=== PATIENT | female | born 1960 | race African-American/Black ===

== ENCOUNTER 2019-08-04 00:07 | Inpatient (IN) | payer OTHER, MEDICAID ==
[2019-08-04] VITALS (15 sets, daily range): BP systolic 142–165; BP diastolic 75–99
[~2019-08-04] VITALS: Ht 167.6 cm; Wt 103.4 kg
[2019-08-04] MEDS ORDERED: ONDANSETRON HCL 4MG/2ML INJ IV STA (00:28)
[2019-08-04] MEDS ORDERED: SODIUM CHLORIDE 0.9% 1,000 ML IV ONE (00:28)
[2019-08-04 01:03] LABS: BASOPHILS % 0.3 % (0.0-2.0); EOSINOPHILS % 0.1 % (0.0-5.0); HEMATOCRIT. 46.4 % (36.0-48.0); HEMOGLOBIN. 15.3 g/dL (12.0-16.0); MEAN CORPUSCULAR VOLUME 90.8 fL (81.0-99.0); MEAN PLATELET VOLUME 9.8 fl (7.4-10.4); MONOCYTES % 7.3 % (2.0-8.0); NEUTROPHILS % 84.3 % (40.0-76.0); PLATELET 222 x1000/uL (130-400); RED BLOOD CELL COUNT 5.11 mill/uL (4.2-5.4); RED CELL DISTRIBUTION WIDTH 14.8 % (11.6-14.6)
[2019-08-04 01:08] LABS: INR 1.1; PROTHROMBIN TIME 11.6 sec (9.6-11.0)
[2019-08-04 01:09] LABS: CHLORIDE 104 mEq/L (98-107)
[2019-08-04 01:13] LABS: ETHANOL BLOOD < 10 mg/dL
[2019-08-04] MEDS ORDERED: DEXAMETHASONE 10 MG/ML VIAL IV ONE (02:30)
[2019-08-04 02:48] LABS: CLARITY URINE CLEAR (CLEAR); COLOR URINE YELLOW (YELLOW); KETONES URINE 3+ (NEGATIVE); LEUKOCYTE ESTERASE URINE NEGATIVE (NEGATIVE); NITRITE URINE NEGATIVE (NEGATIVE); OCCULT BLOOD URINE TRACE (NEGATIVE); PROTEIN URINE 3+ (NEGATIVE); SPECIFIC GRAVITY URINE 1.047 (1.005-1.030)
[2019-08-04 03:10] LABS: *AMPHETAMINES SCREEN URINE NEGATIVE (NEGATIVE); *BARBITURATES SCREEN URINE NEGATIVE (NEGATIVE); *BENZODIAZEPINES SCREEN URINE NEGATIVE (NEGATIVE); *COCAINE SCREEN URINE NEGATIVE (NEGATIVE); OPIATES URINE SCREEN NEGATIVE (NEGATIVE)
[2019-08-04 03:11] LABS: CANNABINOID URINE SCREEN NEGATIVE (NEGATIVE); METHADONE URINE SCREEN NEGATIVE (NEGATIVE); PHENCYCLIDINE URINE SCREEN NEGATIVE (NEGATIVE)
[2019-08-04] MEDS ORDERED: HYDRALAZINE 20MG/ML VIAL IV SCH (03:29)
[2019-08-04] MEDS ORDERED: INSULIN LISPRO 100 UNITS/ML SUBCUT SCH (03:30)
[2019-08-04] MEDS ORDERED: INSULIN LISPRO 100 UNITS/ML SUBCUT ONE (03:30)
[2019-08-04] MEDS ORDERED: HYDRALAZINE 20MG/ML VIAL ONE (03:31)
[2019-08-04] MEDS: INSULIN LISPRO 100 UNITS/ML SUBCUT SCH ×3 (06:21→18:34)
[2019-08-04] MEDS: BLOOD SUGAR DIAGNOSTIC STRIP TEST SCH ×3 (06:22→18:07)
[2019-08-04] MEDS ORDERED: SODIUM CHL 0.9% + KCL 20MEQ/L 1,000 ML IV SCH (07:00)
[2019-08-04] MEDS: HYDRALAZINE 20MG/ML VIAL IV PRN (08:37)
[2019-08-04] MEDS ORDERED: ASPIRIN 325MG TABLET PO SCH (09:00)
[2019-08-04 12:45] LABS: CHLORIDE 109 mEq/L (98-107)
[2019-08-04 12:52] LABS: LDL CHOLESTEROL 130 mg/dL (5-100)
[2019-08-04 12:54] LABS: HDL CHOLESTEROL 67 mg/dL (40-59)
[2019-08-04] MEDS: SODIUM CHLORIDE 0.45% 1,000 ML IV SCH (14:30)
[2019-08-04] MEDS ORDERED: FUROSEMIDE 40MG/4ML VIAL IVP SCH (14:30)
[2019-08-04 15:56] LABS: HEMOGLOBIN. 15.4 g/dL (12.0-16.0); MEAN CORPUSCULAR HEMOGLOBIN 29.8 pg (28.0-32.0); MEAN PLATELET VOLUME 10.5 fl (7.4-10.4); PLATELET 199 x1000/uL (130-400); RED BLOOD CELL COUNT 5.17 mill/uL (4.2-5.4); RED CELL DISTRIBUTION WIDTH 15.1 % (11.6-14.6)
[2019-08-04 16:47] LABS: PLATELET ESTIMATE NORMAL
[2019-08-04] MEDS: ATORVASTATIN CALCIUM 40MG TABLET PO SCH (22:30)
[2019-08-05] VITALS (13 sets, daily range): BP systolic 142–199; BP diastolic 65–104
[2019-08-05] MEDS: INSULIN LISPRO 100 UNITS/ML SUBCUT SCH ×4 (00:27→18:00)
[2019-08-05] MEDS: BLOOD SUGAR DIAGNOSTIC STRIP TEST SCH ×4 (00:31→17:10)
[2019-08-05] MEDS: HYDRALAZINE 20MG/ML VIAL IV PRN ×2 (08:06→17:11)
[2019-08-05] MEDS: SODIUM CHLORIDE 0.45% 1,000 ML IV SCH (08:30)
[2019-08-05] MEDS ORDERED: FLUCONAZOLE 150MG TABLET PO NR (12:30)
[2019-08-05 12:36] LABS: BASOPHILS % 0.4 % (0.0-2.0); EOSINOPHILS % 0.1 % (0.0-5.0); HEMATOCRIT. 44.1 % (36.0-48.0); HEMOGLOBIN. 14.8 g/dL (12.0-16.0); LYMPHOCYTES % 8.3 % (20.0-50.0); MEAN CORPUSCULAR HEMOGLOBIN 30.1 pg (28.0-32.0); MEAN CORPUSCULAR VOLUME 89.7 fL (81.0-99.0); MEAN PLATELET VOLUME 10.3 fl (7.4-10.4); MONOCYTES % 8.7 % (2.0-8.0); NEUTROPHILS % 82.5 % (40.0-76.0); PLATELET 218 x1000/uL (130-400); RED BLOOD CELL COUNT 4.91 mill/uL (4.2-5.4); RED CELL DISTRIBUTION WIDTH 15.1 % (11.6-14.6)
[2019-08-05 12:43] LABS: CHLORIDE 108 mEq/L (98-107)
[2019-08-05] MEDS ORDERED: AMLODIPINE 5MG TABLET PO NR (13:30)
[2019-08-05] MEDS ORDERED: POTASSIUM CHLORIDE INJ 40 MEQ in DEXT 5% WATER 250 ML IV SCH (15:00)
[2019-08-05] MEDS: LOSARTAN POTASSIUM 100 MG TABLET PO SCH (15:05)
[2019-08-05] MEDS: CEFTRIAXONE 1,000 MG in DEXTROSE 5% WATER 50 ML IV SCH (16:00)
[2019-08-05] MEDS: ATORVASTATIN CALCIUM 40MG TABLET PO SCH (22:32)
[2019-08-05] MEDS: AMLODIPINE 5MG TABLET PO SCH (22:33)
[2019-08-06] VITALS (12 sets, daily range): BP systolic 128–195; BP diastolic 78–110
[2019-08-06] MEDS: BLOOD SUGAR DIAGNOSTIC STRIP TEST SCH ×4 (00:15→18:26)
[2019-08-06] MEDS: INSULIN GLARGINE UD 100 UNITS/ML SYR SUBCUT SCH ×3 (00:24→21:29)
[2019-08-06] MEDS: INSULIN LISPRO 100 UNITS/ML SUBCUT SCH ×5 (00:25→23:59)
[2019-08-06] MEDS: HYDRALAZINE 20MG/ML VIAL IV PRN ×2 (00:26→09:38)
[2019-08-06] MEDS: METOPROLOL TARTRATE 50MG TABLET PO SCH ×4 (01:46→21:29)
[2019-08-06 06:22] LABS: HEMATOCRIT. 45.8 % (36.0-48.0); HEMOGLOBIN. 15.3 g/dL (12.0-16.0); MEAN CORPUSCULAR HEMOGLOBIN 30.3 pg (28.0-32.0); MEAN CORPUSCULAR VOLUME 90.7 fL (81.0-99.0); MEAN PLATELET VOLUME 10.6 fl (7.4-10.4); PLATELET 223 x1000/uL (130-400); RED BLOOD CELL COUNT 5.05 mill/uL (4.2-5.4); RED CELL DISTRIBUTION WIDTH 15.1 % (11.6-14.6)
[2019-08-06 06:37] LABS: CHLORIDE 109 mEq/L (98-107)
[2019-08-06] MEDS: SODIUM CHLORIDE 0.45% 1,000 ML IV SCH (06:41)
[2019-08-06] MEDS: LOSARTAN POTASSIUM 100 MG TABLET PO SCH (09:30)
[2019-08-06] MEDS: AMLODIPINE 5MG TABLET PO SCH (09:34)
[2019-08-06] MEDS ORDERED: POTASSIUM CHLORIDE 20MEQ TABLET SR PO NR (12:00)
[2019-08-06 12:05] LABS: NUCLEATED RED BLOOD CELLS 1 /100 WBC; PLATELET ESTIMATE NORMAL
[2019-08-06] MEDS: DILTIAZEM HCL 60MG TABLET PO SCH ×3 (13:24→23:28)
[2019-08-06] MEDS: CEFTRIAXONE 1,000 MG in DEXTROSE 5% WATER 50 ML IV SCH (17:19)
[2019-08-06] MEDS: ATORVASTATIN CALCIUM 40MG TABLET PO SCH ×2 (21:00→21:29)
[2019-08-06] MEDS: METOPROLOL TARTRATE 5MG/5ML VIAL IV SCH (22:36)
[2019-08-07] VITALS (12 sets, daily range): BP systolic 118–185; BP diastolic 74–121
[2019-08-07] MEDS: METOPROLOL TARTRATE 5MG/5ML VIAL IV SCH (05:11)
[2019-08-07] MEDS: INSULIN LISPRO 100 UNITS/ML SUBCUT SCH ×4 (05:30→23:23)
[2019-08-07] MEDS: DILTIAZEM HCL 60MG TABLET PO SCH ×4 (05:36→23:19)
[2019-08-07] MEDS: BLOOD SUGAR DIAGNOSTIC STRIP TEST SCH ×5 (05:36→23:19)
[2019-08-07 06:31] LABS: CHLORIDE 114 mEq/L (98-107)
[2019-08-07] MEDS: HYDRALAZINE 20MG/ML VIAL IV PRN ×2 (06:36→15:49)
[2019-08-07 06:56] LABS: BASOPHILS % 0.5 % (0.0-2.0); EOSINOPHILS % 0.2 % (0.0-5.0); HEMOGLOBIN. 15.9 g/dL (12.0-16.0); LYMPHOCYTES % 7.6 % (20.0-50.0); MEAN CORPUSCULAR HEMOGLOBIN 30.2 pg (28.0-32.0); MEAN CORPUSCULAR VOLUME 89.6 fL (81.0-99.0); MEAN PLATELET VOLUME 10.7 fl (7.4-10.4); MONOCYTES % 10.3 % (2.0-8.0); NEUTROPHILS % 81.4 % (40.0-76.0); PLATELET 241 x1000/uL (130-400); RED BLOOD CELL COUNT 5.25 mill/uL (4.2-5.4); RED CELL DISTRIBUTION WIDTH 15.4 % (11.6-14.6)
[2019-08-07] MEDS: METOPROLOL TARTRATE 50MG TABLET PO SCH ×3 (08:20→20:16)
[2019-08-07] MEDS: LOSARTAN POTASSIUM 100 MG TABLET PO SCH ×2 (08:20→09:14)
[2019-08-07] MEDS: INSULIN GLARGINE UD 100 UNITS/ML SYR SUBCUT SCH ×2 (09:26→22:35)
[2019-08-07] MEDS ORDERED: POTASSIUM CHLORIDE INJ 40 MEQ in DEXT 5% WATER 250 ML IV NR (14:00)
[2019-08-07] MEDS: CEFTRIAXONE 1,000 MG in DEXTROSE 5% WATER 50 ML IV SCH (15:49)
[2019-08-07] MEDS ORDERED: AMIODARONE HCL 150 MG in DEXT 5% WATER 100 ML IV ONE (19:00)
[2019-08-07] MEDS: ATORVASTATIN CALCIUM 40MG TABLET PO SCH (20:16)
[2019-08-07] MEDS: AMIODARONE HCL 900 MG in DEXT 5% WATER 482 ML IV PRN (20:46)
[2019-08-08] VITALS (12 sets, daily range): BP systolic 130–165; BP diastolic 51–119
[2019-08-08] MEDS: DILTIAZEM HCL 60MG TABLET PO SCH ×4 (05:13→23:13)
[2019-08-08] MEDS: BLOOD SUGAR DIAGNOSTIC STRIP TEST SCH ×4 (05:13→23:03)
[2019-08-08] MEDS: INSULIN LISPRO 100 UNITS/ML SUBCUT SCH ×6 (05:27→23:08)
[2019-08-08 06:30] LABS: HEMATOCRIT. 48.1 % (36.0-48.0); HEMOGLOBIN. 16.1 g/dL (12.0-16.0); MEAN CORPUSCULAR HEMOGLOBIN 30.4 pg (28.0-32.0); MEAN CORPUSCULAR VOLUME 90.5 fL (81.0-99.0); MEAN PLATELET VOLUME 10.7 fl (7.4-10.4); PLATELET 222 x1000/uL (130-400); RED BLOOD CELL COUNT 5.31 mill/uL (4.2-5.4); RED CELL DISTRIBUTION WIDTH 15.2 % (11.6-14.6)
[2019-08-08 06:34] LABS: CHLORIDE 112 mEq/L (98-107)
[2019-08-08] MEDS: METOPROLOL TARTRATE 50MG TABLET PO SCH ×2 (08:18→21:48)
[2019-08-08] MEDS: LOSARTAN POTASSIUM 100 MG TABLET PO SCH (08:18)
[2019-08-08] MEDS: INSULIN GLARGINE UD 100 UNITS/ML SYR SUBCUT SCH ×2 (10:24→23:02)
[2019-08-08] MEDS ORDERED: DILTIAZEM HCL 30MG TABLET PO NR (12:15)
[2019-08-08] MEDS: HYDRALAZINE 20MG/ML VIAL IV PRN (14:32)
[2019-08-08] MEDS: CEFTRIAXONE 1,000 MG in DEXTROSE 5% WATER 50 ML IV SCH (16:24)
[2019-08-08] MEDS ORDERED: DILTIAZEM HCL 90MG TABLET PO SCH (18:00)
[2019-08-08] MEDS: ASPIRIN 81MG TABLET PO SCH (18:32)
[2019-08-08 20:19] LABS: PLATELET ESTIMATE NORMAL
[2019-08-08] MEDS: ATORVASTATIN CALCIUM 40MG TABLET PO SCH (21:47)
[2019-08-09] VITALS (12 sets, daily range): BP systolic 110–153; BP diastolic 59–121
[2019-08-09] MEDS: HYDRALAZINE 20MG/ML VIAL IV PRN ×2 (04:19→18:27)
[2019-08-09] MEDS: BLOOD SUGAR DIAGNOSTIC STRIP TEST SCH ×4 (05:21→23:46)
[2019-08-09] MEDS: DILTIAZEM HCL 60MG TABLET PO SCH ×4 (05:21→23:43)
[2019-08-09] MEDS: INSULIN LISPRO 100 UNITS/ML SUBCUT SCH ×7 (05:40→23:45)
[2019-08-09 06:34] LABS: HEMATOCRIT. 46.2 % (36.0-48.0); HEMOGLOBIN. 15.2 g/dL (12.0-16.0); MEAN CORPUSCULAR HEMOGLOBIN 29.9 pg (28.0-32.0); MEAN CORPUSCULAR VOLUME 90.6 fL (81.0-99.0); MEAN PLATELET VOLUME 10.9 fl (7.4-10.4); PLATELET 235 x1000/uL (130-400); RED CELL DISTRIBUTION WIDTH 14.9 % (11.6-14.6)
[2019-08-09 06:40] LABS: CHLORIDE 113 mEq/L (98-107)
[2019-08-09 07:32] LABS: PLATELET ESTIMATE NORMAL
[2019-08-09] MEDS: ASPIRIN 81MG TABLET PO SCH (08:43)
[2019-08-09] MEDS: LOSARTAN POTASSIUM 100 MG TABLET PO SCH (08:43)
[2019-08-09] MEDS: METOPROLOL TARTRATE 50MG TABLET PO SCH (08:45)
[2019-08-09] MEDS: INSULIN GLARGINE UD 100 UNITS/ML SYR SUBCUT SCH ×2 (13:08→23:45)
[2019-08-09] MEDS: ATORVASTATIN CALCIUM 40MG TABLET PO SCH (21:30)
[2019-08-09] MEDS: METOPROLOL TARTRATE 100MG TABLET PO SCH (21:59)
[2019-08-10] VITALS (12 sets, daily range): BP systolic 120–168; BP diastolic 53–99
[2019-08-10] MEDS: AMIODARONE HCL 900 MG in DEXT 5% WATER 482 ML IV PRN (02:31)
[2019-08-10] MEDS: DILTIAZEM HCL 60MG TABLET PO SCH ×3 (05:31→17:26)
[2019-08-10] MEDS: BLOOD SUGAR DIAGNOSTIC STRIP TEST SCH ×3 (05:31→17:31)
[2019-08-10] MEDS: INSULIN LISPRO 100 UNITS/ML SUBCUT SCH ×6 (05:46→17:28)
[2019-08-10 07:04] LABS: BASOPHILS % 0.4 % (0.0-2.0); EOSINOPHILS % 1.8 % (0.0-5.0); HEMATOCRIT. 44.1 % (36.0-48.0); HEMOGLOBIN. 14.5 g/dL (12.0-16.0); LYMPHOCYTES % 7.5 % (20.0-50.0); MEAN CORPUSCULAR HEMOGLOBIN 29.9 pg (28.0-32.0); MEAN CORPUSCULAR VOLUME 91.2 fL (81.0-99.0); MEAN PLATELET VOLUME 10.7 fl (7.4-10.4); MONOCYTES % 9.7 % (2.0-8.0); NEUTROPHILS % 80.6 % (40.0-76.0); PLATELET 231 x1000/uL (130-400); RED BLOOD CELL COUNT 4.84 mill/uL (4.2-5.4); RED CELL DISTRIBUTION WIDTH 14.9 % (11.6-14.6)
[2019-08-10 07:22] LABS: CHLORIDE 113 mEq/L (98-107)
[2019-08-10] MEDS: ASPIRIN 81MG TABLET PO SCH (08:34)
[2019-08-10] MEDS: LOSARTAN POTASSIUM 100 MG TABLET PO SCH (08:34)
[2019-08-10] MEDS: METOPROLOL TARTRATE 100MG TABLET PO SCH ×2 (08:34→21:36)
[2019-08-10] MEDS ORDERED: METOPROLOL TARTRATE 100MG TABLET PO SCH (09:00)
[2019-08-10] MEDS: INSULIN GLARGINE UD 100 UNITS/ML SYR SUBCUT SCH (09:27)
[2019-08-10] MEDS: ATORVASTATIN CALCIUM 40MG TABLET PO SCH (21:36)
[2019-08-11] VITALS (12 sets, daily range): BP systolic 115–157; BP diastolic 64–95
[2019-08-11] MEDS: INSULIN GLARGINE UD 100 UNITS/ML SYR SUBCUT SCH ×3 (00:16→22:00)
[2019-08-11] MEDS: DILTIAZEM HCL 60MG TABLET PO SCH ×4 (00:17→17:26)
[2019-08-11] MEDS: BLOOD SUGAR DIAGNOSTIC STRIP TEST SCH ×4 (00:17→17:17)
[2019-08-11] MEDS: INSULIN LISPRO 100 UNITS/ML SUBCUT SCH ×7 (00:17→17:18)
[2019-08-11 06:35] LABS: BASOPHILS % 0.7 % (0.0-2.0); EOSINOPHILS % 1.6 % (0.0-5.0); HEMATOCRIT. 44.9 % (36.0-48.0); HEMOGLOBIN. 14.6 g/dL (12.0-16.0); LYMPHOCYTES % 8.6 % (20.0-50.0); MEAN CORPUSCULAR HEMOGLOBIN 29.5 pg (28.0-32.0); MEAN CORPUSCULAR VOLUME 90.3 fL (81.0-99.0); MEAN PLATELET VOLUME 10.4 fl (7.4-10.4); MONOCYTES % 10.6 % (2.0-8.0); NEUTROPHILS % 78.5 % (40.0-76.0); PLATELET 246 x1000/uL (130-400); RED BLOOD CELL COUNT 4.97 mill/uL (4.2-5.4)
[2019-08-11 07:01] LABS: CHLORIDE 115 mEq/L (98-107)
[2019-08-11] MEDS: METOPROLOL TARTRATE 100MG TABLET PO SCH ×2 (09:48→21:46)
[2019-08-11] MEDS: LOSARTAN POTASSIUM 100 MG TABLET PO SCH (09:48)
[2019-08-11] MEDS ORDERED: LIDOCAINE HCL 1% 20ML VIAL (Pyxis) INJ ONE (10:13)
[2019-08-11] MEDS ORDERED: CEFAZOLIN 1000MG PREMIX 50 ML IV SCH ×2 (11:00→18:00)
[2019-08-11] MEDS: DEXTROSE 50% WATER 50ML SYRINGE IV PRN ×2 (11:29→17:14)
[2019-08-11 14:44] LABS: BG BASE EXCESS 1.7 mmol/L (-2.0-2.0); BG CARBOXYHEMOGLOBIN 0.6 % (0.5-1.5); BG FRACTION INSPIRED OXYGEN 21; BG HCO3 ACT 22.8 mmol/L (22.0-26.0); BG METHEMOGLOBIN 0.2 % (0.0-1.5); BG OXYHEMOGLOBIN 96.2 % (94.0-97.0); BG PCO2 27.1 mmHg (35.0-45.0); BG PH 7.542 (7.350-7.450); BG PO2 81.9 mmHg (75.0-100.0); BG SAMPLE SITE RIGHT RADIAL; BG TOTAL HEMOGLOBIN 15.1 g/dL (12.0-18.0); BG VENT MODE ROOM AIR
[2019-08-11] MEDS: ATORVASTATIN CALCIUM 40MG TABLET PO SCH (21:45)
[2019-08-12] VITALS (11 sets, daily range): BP systolic 123–147; BP diastolic 64–90
[2019-08-12] MEDS: BLOOD SUGAR DIAGNOSTIC STRIP TEST SCH ×4 (00:40→16:38)
[2019-08-12] MEDS: DILTIAZEM HCL 60MG TABLET PO SCH ×4 (00:45→17:19)
[2019-08-12] MEDS: INSULIN LISPRO 100 UNITS/ML SUBCUT SCH ×7 (06:00→16:38)
[2019-08-12 06:46] LABS: BASOPHILS % 0.6 % (0.0-2.0); EOSINOPHILS % 1.9 % (0.0-5.0); HEMATOCRIT. 42.8 % (36.0-48.0); HEMOGLOBIN. 13.8 g/dL (12.0-16.0); LYMPHOCYTES % 10.1 % (20.0-50.0); MEAN CORPUSCULAR HEMOGLOBIN 29.3 pg (28.0-32.0); MEAN CORPUSCULAR VOLUME 91.1 fL (81.0-99.0); MEAN PLATELET VOLUME 10.6 fl (7.4-10.4); MONOCYTES % 11.2 % (2.0-8.0); NEUTROPHILS % 76.2 % (40.0-76.0); PLATELET 235 x1000/uL (130-400); RED CELL DISTRIBUTION WIDTH 15.1 % (11.6-14.6)
[2019-08-12 07:08] LABS: CHLORIDE 115 mEq/L (98-107)
[2019-08-12] MEDS: METOPROLOL TARTRATE 100MG TABLET PO SCH ×2 (09:00→21:56)
[2019-08-12] MEDS ORDERED: CEFAZOLIN SODIUM 1000MG/VIAL IM ONE (09:00)
[2019-08-12] MEDS: LOSARTAN POTASSIUM 100 MG TABLET PO SCH (09:00)
[2019-08-12] MEDS ORDERED: CEFAZOLIN 1000MG PREMIX 50 ML IV NR (09:00)
[2019-08-12] MEDS: INSULIN GLARGINE UD 100 UNITS/ML SYR SUBCUT SCH ×2 (09:17→22:00)
[2019-08-12] MEDS ORDERED: FUROSEMIDE 40MG/4ML VIAL IVP NR (11:15)
[2019-08-12] MEDS ORDERED: MIDAZOLAM HCL 5 MG/5 ML VIAL ONE (12:01)
[2019-08-12] MEDS ORDERED: FENTANYL CITRATE/PF 50MCG/ML 2ML VIAL ONE (12:01)
[2019-08-12] MEDS ORDERED: MIDAZOLAM HCL 5 MG/5 ML VIAL IV PRN (14:20)
[2019-08-12] MEDS: SUCRALFATE 1 G/10 ML UDC GT SCH (17:19)
[2019-08-12] MEDS: METOCLOPRAMIDE HCL 10MG/2ML VIAL IV SCH (17:20)
[2019-08-12] MEDS: ATORVASTATIN CALCIUM 40MG TABLET PO SCH (21:56)
[2019-08-13] VITALS (11 sets, daily range): BP systolic 105–129; BP diastolic 59–77
[2019-08-13] MEDS: BLOOD SUGAR DIAGNOSTIC STRIP TEST SCH ×4 (00:16→17:24)
[2019-08-13] MEDS: SUCRALFATE 1 G/10 ML UDC GT SCH ×4 (00:30→17:32)
[2019-08-13] MEDS: METOCLOPRAMIDE HCL 10MG/2ML VIAL IV SCH ×4 (00:30→17:32)
[2019-08-13] MEDS: DILTIAZEM HCL 60MG TABLET PO SCH ×4 (00:30→17:32)
[2019-08-13] MEDS: INSULIN LISPRO 100 UNITS/ML SUBCUT SCH ×7 (06:00→17:33)
[2019-08-13 07:09] LABS: BASOPHILS % 0.8 % (0.0-2.0); EOSINOPHILS % 1.5 % (0.0-5.0); HEMATOCRIT. 43.7 % (36.0-48.0); HEMOGLOBIN. 13.8 g/dL (12.0-16.0); LYMPHOCYTES % 9.4 % (20.0-50.0); MEAN CORPUSCULAR HEMOGLOBIN 29.4 pg (28.0-32.0); MEAN CORPUSCULAR VOLUME 92.7 fL (81.0-99.0); MEAN PLATELET VOLUME 10.4 fl (7.4-10.4); MONOCYTES % 8.2 % (2.0-8.0); NEUTROPHILS % 80.1 % (40.0-76.0); PLATELET 218 x1000/uL (130-400); RED BLOOD CELL COUNT 4.71 mill/uL (4.2-5.4); RED CELL DISTRIBUTION WIDTH 15.4 % (11.6-14.6)
[2019-08-13 07:22] LABS: CHLORIDE 115 mEq/L (98-107)
[2019-08-13] MEDS: METOPROLOL TARTRATE 100MG TABLET PO SCH ×2 (09:12→21:39)
[2019-08-13] MEDS: PANTOPRAZOLE SODIUM 40 MG/VIAL IV SCH (09:12)
[2019-08-13] MEDS: LOSARTAN POTASSIUM 100 MG TABLET PO SCH (09:12)
[2019-08-13] MEDS: INSULIN GLARGINE UD 100 UNITS/ML SYR SUBCUT SCH ×2 (09:17→22:14)
[2019-08-13] MEDS: AMIODARONE HCL 200 MG TABLET PO SCH (09:50)
[2019-08-13] MEDS: ATORVASTATIN CALCIUM 40MG TABLET PO SCH (21:39)
[2019-08-14] VITALS (7 sets, daily range): BP systolic 118–143; BP diastolic 64–85
[2019-08-14] MEDS: BLOOD SUGAR DIAGNOSTIC STRIP TEST SCH ×4 (00:36→17:43)
[2019-08-14] MEDS: METOCLOPRAMIDE HCL 10MG/2ML VIAL IV SCH ×5 (00:42→23:57)
[2019-08-14] MEDS: DILTIAZEM HCL 60MG TABLET PO SCH ×4 (00:42→18:43)
[2019-08-14] MEDS: SUCRALFATE 1 G/10 ML UDC GT SCH ×5 (00:42→23:56)
[2019-08-14] MEDS: INSULIN LISPRO 100 UNITS/ML SUBCUT SCH ×7 (05:17→18:52)
[2019-08-14] MEDS: LOSARTAN POTASSIUM 100 MG TABLET PO SCH (09:03)
[2019-08-14] MEDS: AMIODARONE HCL 200 MG TABLET PO SCH (09:04)
[2019-08-14] MEDS: PANTOPRAZOLE SODIUM 40 MG/VIAL IV SCH (09:04)
[2019-08-14] MEDS: ASPIRIN 81MG TABLET PO SCH (09:04)
[2019-08-14] MEDS: METOPROLOL TARTRATE 100MG TABLET PO SCH ×2 (09:57→21:15)
[2019-08-14] MEDS: INSULIN GLARGINE UD 100 UNITS/ML SYR SUBCUT SCH ×2 (10:45→21:21)
[2019-08-14] MEDS: ATORVASTATIN CALCIUM 40MG TABLET PO SCH (21:15)
[2019-08-15] VITALS: BP 129/86
[2019-08-15] MEDS: DILTIAZEM HCL 60MG TABLET PO SCH ×4 (00:21→17:48)
[2019-08-15 04:00] VITALS: BP 132/75
[2019-08-15] MEDS: SUCRALFATE 1 G/10 ML UDC GT SCH ×3 (05:44→17:47)
[2019-08-15] MEDS: METOCLOPRAMIDE HCL 10MG/2ML VIAL IV SCH ×3 (05:44→17:47)
[2019-08-15] MEDS: BLOOD SUGAR DIAGNOSTIC STRIP TEST SCH ×4 (05:45→17:39)
[2019-08-15] MEDS: INSULIN LISPRO 100 UNITS/ML SUBCUT SCH ×7 (06:04→17:52)
[2019-08-15 07:15] LABS: BASOPHILS % 0.6 % (0.0-2.0); EOSINOPHILS % 2.5 % (0.0-5.0); HEMATOCRIT. 40.5 % (36.0-48.0); HEMOGLOBIN. 13.1 g/dL (12.0-16.0); LYMPHOCYTES % 7.9 % (20.0-50.0); MEAN CORPUSCULAR HEMOGLOBIN 29.6 pg (28.0-32.0); MEAN CORPUSCULAR VOLUME 91.5 fL (81.0-99.0); MEAN PLATELET VOLUME 10.6 fl (7.4-10.4); MONOCYTES % 6.6 % (2.0-8.0); NEUTROPHILS % 82.4 % (40.0-76.0); PLATELET 239 x1000/uL (130-400); RED BLOOD CELL COUNT 4.43 mill/uL (4.2-5.4)
[2019-08-15 07:27] LABS: CHLORIDE 116 mEq/L (98-107)
[2019-08-15 08:00] VITALS: BP 136/73
[2019-08-15] MEDS: LOSARTAN POTASSIUM 100 MG TABLET PO SCH (09:49)
[2019-08-15] MEDS: AMIODARONE HCL 200 MG TABLET PO SCH (09:50)
[2019-08-15] MEDS: METOPROLOL TARTRATE 100MG TABLET PO SCH ×2 (09:50→21:47)
[2019-08-15] MEDS: ASPIRIN 81MG TABLET PO SCH (09:50)
[2019-08-15] MEDS: PANTOPRAZOLE SODIUM 40 MG/VIAL IV SCH (09:51)
[2019-08-15] MEDS: INSULIN GLARGINE UD 100 UNITS/ML SYR SUBCUT SCH ×2 (10:38→21:48)
[2019-08-15 12:00] VITALS: BP 128/79
[2019-08-15] MEDS: NYSTATIN POWDER 15GM TOP SCH ×2 (15:10→21:46)
[2019-08-15 16:00] VITALS: BP 164/93
[2019-08-15 20:00] VITALS: BP 141/82
[2019-08-15] MEDS: ATORVASTATIN CALCIUM 40MG TABLET PO SCH (21:46)
[2019-08-16] VITALS: BP 124/79
[2019-08-16] MEDS: DILTIAZEM HCL 60MG TABLET PO SCH ×5 (00:40→23:55)
[2019-08-16] MEDS: METOCLOPRAMIDE HCL 10MG/2ML VIAL IV SCH ×5 (00:40→23:54)
[2019-08-16] MEDS: SUCRALFATE 1 G/10 ML UDC GT SCH ×5 (00:40→23:54)
[2019-08-16] MEDS: BLOOD SUGAR DIAGNOSTIC STRIP TEST SCH ×5 (00:41→23:56)
[2019-08-16 04:00] VITALS: BP 136/74
[2019-08-16] MEDS: INSULIN LISPRO 100 UNITS/ML SUBCUT SCH ×7 (06:00→17:30)
[2019-08-16] MEDS: NYSTATIN POWDER 15GM TOP SCH ×3 (06:15→21:04)
[2019-08-16 08:00] VITALS: BP 126/76
[2019-08-16] MEDS: PANTOPRAZOLE SODIUM 40 MG/VIAL IV SCH (08:41)
[2019-08-16] MEDS: AMIODARONE HCL 200 MG TABLET PO SCH (08:41)
[2019-08-16] MEDS: ASPIRIN 81MG TABLET PO SCH (08:41)
[2019-08-16] MEDS: METOPROLOL TARTRATE 100MG TABLET PO SCH ×2 (08:42→21:06)
[2019-08-16] MEDS: LOSARTAN POTASSIUM 100 MG TABLET PO SCH (08:43)
[2019-08-16] MEDS: INSULIN GLARGINE UD 100 UNITS/ML SYR SUBCUT SCH ×2 (09:36→22:40)
[2019-08-16 11:46] VITALS: BP 124/70
[2019-08-16 16:02] VITALS: BP 146/80
[2019-08-16 20:00] VITALS: BP 153/90
[2019-08-16] MEDS: ATORVASTATIN CALCIUM 40MG TABLET PO SCH (21:04)
[2019-08-17] VITALS (7 sets, daily range): BP systolic 126–178; BP diastolic 77–97
[2019-08-17] MEDS: DEXTROSE 50% WATER 50ML SYRINGE IV PRN ×2 (04:55→23:22)
[2019-08-17] MEDS: SUCRALFATE 1 G/10 ML UDC GT SCH ×4 (05:00→23:29)
[2019-08-17] MEDS: METOCLOPRAMIDE HCL 10MG/2ML VIAL IV SCH ×4 (05:01→23:29)
[2019-08-17] MEDS: DILTIAZEM HCL 60MG TABLET PO SCH ×2 (05:01→12:21)
[2019-08-17] MEDS: INSULIN LISPRO 100 UNITS/ML SUBCUT SCH ×8 (05:01→23:30)
[2019-08-17] MEDS: NYSTATIN POWDER 15GM TOP SCH ×3 (05:01→21:06)
[2019-08-17] MEDS: BLOOD SUGAR DIAGNOSTIC STRIP TEST SCH ×4 (05:02→23:30)
[2019-08-17] MEDS: ASPIRIN 81MG TABLET PO SCH (08:39)
[2019-08-17] MEDS: PANTOPRAZOLE SODIUM 40 MG/VIAL IV SCH (08:39)
[2019-08-17] MEDS: LOSARTAN POTASSIUM 100 MG TABLET PO SCH (08:39)
[2019-08-17] MEDS: METOPROLOL TARTRATE 100MG TABLET PO SCH ×2 (08:40→21:05)
[2019-08-17] MEDS: AMIODARONE HCL 200 MG TABLET PO SCH (08:40)
[2019-08-17] MEDS: INSULIN GLARGINE UD 100 UNITS/ML SYR SUBCUT SCH ×2 (10:28→21:04)
[2019-08-17] MEDS: HYDRALAZINE 20MG/ML VIAL IV PRN (13:17)
[2019-08-17] MEDS ORDERED: CLONIDINE 0.1MG TABLET PO PRN (16:15)
[2019-08-17] MEDS: DILTIAZEM HCL 90MG TABLET PO SCH ×2 (18:06→23:30)
[2019-08-17] MEDS: ATORVASTATIN CALCIUM 40MG TABLET PO SCH (21:03)
[2019-08-18] VITALS (8 sets, daily range): BP systolic 142–163; BP diastolic 73–96
[2019-08-18] MEDS: INSULIN LISPRO 100 UNITS/ML SUBCUT SCH ×4 (05:25→18:48)
[2019-08-18] MEDS: SUCRALFATE 1 G/10 ML UDC GT SCH ×4 (05:25→18:37)
[2019-08-18] MEDS: NYSTATIN POWDER 15GM TOP SCH ×2 (05:25→17:00)
[2019-08-18] MEDS: METOCLOPRAMIDE HCL 10MG/2ML VIAL IV SCH ×3 (05:25→18:38)
[2019-08-18] MEDS: BLOOD SUGAR DIAGNOSTIC STRIP TEST SCH ×3 (05:25→18:04)
[2019-08-18] MEDS: DILTIAZEM HCL 90MG TABLET PO SCH ×3 (05:26→18:38)
[2019-08-18] MEDS: METOPROLOL TARTRATE 100MG TABLET PO SCH ×2 (08:53→20:51)
[2019-08-18] MEDS: ASPIRIN 81MG TABLET PO SCH (08:53)
[2019-08-18] MEDS: PANTOPRAZOLE SODIUM 40 MG/VIAL IV SCH (08:53)
[2019-08-18] MEDS: AMIODARONE HCL 200 MG TABLET PO SCH (08:54)
[2019-08-18] MEDS: LOSARTAN POTASSIUM 100 MG TABLET PO SCH (08:56)
[2019-08-18] MEDS: INSULIN GLARGINE UD 100 UNITS/ML SYR SUBCUT SCH (10:00)
[2019-08-18] MEDS: HYDRALAZINE HCL 50MG TABLET PO SCH ×2 (12:13→20:51)
[2019-08-18] MEDS: ATORVASTATIN CALCIUM 40MG TABLET PO SCH (20:51)
[2019-08-19] VITALS: BP 119/73
[2019-08-19] MEDS: DILTIAZEM HCL 90MG TABLET PO SCH ×2 (00:08→05:30)
[2019-08-19] MEDS: METOCLOPRAMIDE HCL 10MG/2ML VIAL IV SCH ×4 (00:08→18:04)
[2019-08-19] MEDS: INSULIN LISPRO 100 UNITS/ML SUBCUT SCH ×4 (00:19→18:05)
[2019-08-19 04:00] VITALS: BP 136/60
[2019-08-19] MEDS: SUCRALFATE 1 G/10 ML UDC GT SCH ×3 (05:28→18:04)
[2019-08-19] MEDS: BLOOD SUGAR DIAGNOSTIC STRIP TEST SCH ×4 (05:31→17:59)
[2019-08-19 07:09] LABS: CHLORIDE 111 mEq/L (98-107)
[2019-08-19 07:22] LABS: BASOPHILS % 0.8 % (0.0-2.0); EOSINOPHILS % 1.3 % (0.0-5.0); HEMATOCRIT. 43.1 % (36.0-48.0); HEMOGLOBIN. 14.2 g/dL (12.0-16.0); LYMPHOCYTES % 9.2 % (20.0-50.0); MEAN CORPUSCULAR HEMOGLOBIN 29.5 pg (28.0-32.0); MEAN CORPUSCULAR VOLUME 89.6 fL (81.0-99.0); MEAN PLATELET VOLUME 10.3 fl (7.4-10.4); MONOCYTES % 7.3 % (2.0-8.0); NEUTROPHILS % 81.4 % (40.0-76.0); PLATELET 250 x1000/uL (130-400); RED BLOOD CELL COUNT 4.81 mill/uL (4.2-5.4); RED CELL DISTRIBUTION WIDTH 14.8 % (11.6-14.6)
[2019-08-19 08:00] VITALS: BP 143/77
[2019-08-19] MEDS: METOPROLOL TARTRATE 100MG TABLET PO SCH ×2 (09:00→20:43)
[2019-08-19] MEDS: PANTOPRAZOLE SODIUM 40 MG/VIAL IV SCH (09:22)
[2019-08-19] MEDS: LOSARTAN POTASSIUM 100 MG TABLET PO SCH (09:23)
[2019-08-19] MEDS: ASPIRIN 81MG TABLET PO SCH (09:23)
[2019-08-19] MEDS: HYDRALAZINE HCL 50MG TABLET PO SCH (09:23)
[2019-08-19] MEDS: AMIODARONE HCL 200 MG TABLET PO SCH (09:23)
[2019-08-19] MEDS: NYSTATIN POWDER 15GM TOP SCH ×3 (09:25→18:06)
[2019-08-19] MEDS ORDERED: POTASSIUM CHLORIDE 20MEQ TABLET SR PO SCH (11:45)
[2019-08-19 12:00] VITALS: BP 141/87
[2019-08-19 16:00] VITALS: BP 144/89
[2019-08-19] MEDS: ATORVASTATIN CALCIUM 40MG TABLET PO SCH (20:42)
[2019-08-19] MEDS: HYDRALAZINE HCL 25MG TABLET PO SCH (20:42)
[2019-08-20] MEDS: SUCRALFATE 1 G/10 ML UDC GT SCH ×4 (00:17→17:12)
[2019-08-20] MEDS: METOCLOPRAMIDE HCL 10MG/2ML VIAL IV SCH ×4 (00:17→17:12)
[2019-08-20] MEDS: INSULIN LISPRO 100 UNITS/ML SUBCUT SCH ×4 (01:08→18:00)
[2019-08-20] MEDS: BLOOD SUGAR DIAGNOSTIC STRIP TEST SCH ×4 (06:00→17:05)
[2019-08-20] MEDS: PANTOPRAZOLE SODIUM 40 MG/VIAL IV SCH (10:45)
[2019-08-20] MEDS: ASPIRIN 81MG TABLET PO SCH (10:46)
[2019-08-20] MEDS: DILTIAZEM HCL 120MG CAPSULE CD 24HR PO SCH (10:47)
[2019-08-20] MEDS: METOPROLOL TARTRATE 100MG TABLET PO SCH ×2 (10:48→21:49)
[2019-08-20] MEDS: HYDRALAZINE HCL 25MG TABLET PO SCH (10:48)
[2019-08-20] MEDS: NYSTATIN POWDER 15GM TOP SCH ×2 (10:49→17:05)
[2019-08-20] MEDS: LOSARTAN POTASSIUM 100 MG TABLET PO SCH (10:49)
[2019-08-20] MEDS: AMIODARONE HCL 200 MG TABLET PO SCH (11:06)
[2019-08-20 12:00] VITALS: BP 152/79
[2019-08-20 15:51] VITALS: BP 143/66
[2019-08-20 20:00] VITALS: BP 163/84
[2019-08-20] MEDS: ATORVASTATIN CALCIUM 40MG TABLET PO SCH (21:49)
[2019-08-20] MEDS: INSULIN GLARGINE UD 100 UNITS/ML SYR SUBCUT SCH (21:49)
[2019-08-20] MEDS: HYDRALAZINE HCL 100MG TABLET PO SCH (21:50)
[2019-08-20 22:00] VITALS: BP 146/92
[2019-08-21] VITALS (9 sets, daily range): BP systolic 118–162; BP diastolic 60–104
[2019-08-21] MEDS: METOCLOPRAMIDE HCL 10MG/2ML VIAL IV SCH ×5 (01:04→23:30)
[2019-08-21] MEDS: SUCRALFATE 1 G/10 ML UDC GT SCH ×5 (01:04→23:29)
[2019-08-21] MEDS: BLOOD SUGAR DIAGNOSTIC STRIP TEST SCH ×5 (05:39→23:30)
[2019-08-21] MEDS: INSULIN LISPRO 100 UNITS/ML SUBCUT SCH ×5 (05:40→23:32)
[2019-08-21] MEDS: METOPROLOL TARTRATE 100MG TABLET PO SCH (09:00)
[2019-08-21] MEDS: DILTIAZEM HCL 120MG CAPSULE CD 24HR PO SCH (09:00)
[2019-08-21] MEDS: ASPIRIN 81MG TABLET PO SCH (09:42)
[2019-08-21] MEDS: AMIODARONE HCL 200 MG TABLET PO SCH (09:43)
[2019-08-21] MEDS: HYDRALAZINE HCL 100MG TABLET PO SCH ×3 (09:43→20:49)
[2019-08-21] MEDS: PANTOPRAZOLE SODIUM 40 MG/VIAL IV SCH (09:43)
[2019-08-21] MEDS: LOSARTAN POTASSIUM 100 MG TABLET PO SCH (09:43)
[2019-08-21] MEDS: NYSTATIN POWDER 15GM TOP SCH ×3 (09:44→18:26)
[2019-08-21] MEDS: INSULIN GLARGINE UD 100 UNITS/ML SYR SUBCUT SCH ×2 (11:00→21:42)
[2019-08-21] MEDS: DILTIAZEM HCL 60MG TABLET PO SCH ×2 (13:24→20:49)
[2019-08-21] MEDS: METOPROLOL TARTRATE 50MG TABLET PO SCH (20:16)
[2019-08-21] MEDS: ATORVASTATIN CALCIUM 40MG TABLET PO SCH (20:17)
[2019-08-22] VITALS: BP 156/87
[2019-08-22 02:00] VITALS: BP 155/99
[2019-08-22 04:00] VITALS: BP 160/68
[2019-08-22] MEDS: DILTIAZEM HCL 60MG TABLET PO SCH ×3 (05:29→22:44)
[2019-08-22] MEDS: SUCRALFATE 1 G/10 ML UDC GT SCH ×3 (05:29→17:47)
[2019-08-22] MEDS: HYDRALAZINE HCL 100MG TABLET PO SCH ×3 (05:29→22:44)
[2019-08-22] MEDS: BLOOD SUGAR DIAGNOSTIC STRIP TEST SCH ×3 (05:30→17:39)
[2019-08-22] MEDS: METOCLOPRAMIDE HCL 10MG/2ML VIAL IV SCH ×3 (05:30→17:46)
[2019-08-22] MEDS: INSULIN LISPRO 100 UNITS/ML SUBCUT SCH ×3 (05:37→17:47)
[2019-08-22 07:59] VITALS: BP 169/72
[2019-08-22] MEDS: PANTOPRAZOLE SODIUM 40 MG/VIAL IV SCH (08:03)
[2019-08-22] MEDS: METOPROLOL TARTRATE 50MG TABLET PO SCH ×2 (08:04→20:34)
[2019-08-22] MEDS: AMIODARONE HCL 200 MG TABLET PO SCH (08:05)
[2019-08-22] MEDS: ASPIRIN 81MG TABLET PO SCH (08:05)
[2019-08-22] MEDS: LOSARTAN POTASSIUM 100 MG TABLET PO SCH (08:06)
[2019-08-22] MEDS: NYSTATIN POWDER 15GM TOP SCH ×3 (08:15→17:45)
[2019-08-22] MEDS: INSULIN GLARGINE UD 100 UNITS/ML SYR SUBCUT SCH ×2 (10:43→23:38)
[2019-08-22 11:32] VITALS: BP 160/76
[2019-08-22] MEDS: MINOXIDIL 2.5MG TABLET PO SCH (11:52)
[2019-08-22 15:57] VITALS: BP 130/67
[2019-08-22] MEDS: ATORVASTATIN CALCIUM 40MG TABLET PO SCH (20:32)
[2019-08-23] MEDS: SUCRALFATE 1 G/10 ML UDC GT SCH ×4 (00:02→17:01)
[2019-08-23] MEDS: METOCLOPRAMIDE HCL 10MG/2ML VIAL IV SCH ×4 (00:02→17:01)
[2019-08-23] MEDS: BLOOD SUGAR DIAGNOSTIC STRIP TEST SCH ×4 (00:02→17:04)
[2019-08-23] MEDS: INSULIN LISPRO 100 UNITS/ML SUBCUT SCH ×4 (00:13→17:25)
[2019-08-23] MEDS: HYDRALAZINE HCL 100MG TABLET PO SCH ×3 (05:26→22:22)
[2019-08-23] MEDS: DILTIAZEM HCL 60MG TABLET PO SCH ×3 (05:27→22:21)
[2019-08-23 07:50] VITALS: BP 168/81
[2019-08-23] MEDS: LOSARTAN POTASSIUM 100 MG TABLET PO SCH (08:43)
[2019-08-23] MEDS: PANTOPRAZOLE SODIUM 40 MG/VIAL IV SCH (08:43)
[2019-08-23] MEDS: ASPIRIN 81MG TABLET PO SCH (08:43)
[2019-08-23] MEDS: MINOXIDIL 2.5MG TABLET PO SCH ×3 (08:44→17:01)
[2019-08-23] MEDS: AMIODARONE HCL 200 MG TABLET PO SCH (08:47)
[2019-08-23] MEDS: METOPROLOL TARTRATE 50MG TABLET PO SCH ×2 (08:47→21:11)
[2019-08-23] MEDS: NYSTATIN POWDER 15GM TOP SCH ×3 (08:55→17:02)
[2019-08-23] MEDS: INSULIN GLARGINE UD 100 UNITS/ML SYR SUBCUT SCH ×2 (08:56→22:24)
[2019-08-23] MEDS: METFORMIN HCL 500MG TABLET PO SCH ×2 (11:33→17:01)
[2019-08-23 11:52] VITALS: BP 140/76
[2019-08-23 16:00] VITALS: BP 141/73
[2019-08-23 20:00] VITALS: BP 144/76
[2019-08-23] MEDS: ATORVASTATIN CALCIUM 40MG TABLET PO SCH (21:09)
[2019-08-23 22:00] VITALS: BP 126/76
[2019-08-24] VITALS (8 sets, daily range): BP systolic 114–134; BP diastolic 59–97
[2019-08-24] MEDS: METOCLOPRAMIDE HCL 10MG/2ML VIAL IV SCH ×5 (00:30→20:32)
[2019-08-24] MEDS: SUCRALFATE 1 G/10 ML UDC GT SCH ×5 (00:30→20:32)
[2019-08-24] MEDS: BLOOD SUGAR DIAGNOSTIC STRIP TEST SCH ×5 (00:31→20:33)
[2019-08-24] MEDS: INSULIN LISPRO 100 UNITS/ML SUBCUT SCH ×5 (00:31→18:18)
[2019-08-24] MEDS: HYDRALAZINE HCL 100MG TABLET PO SCH ×3 (05:45→20:33)
[2019-08-24] MEDS: DILTIAZEM HCL 60MG TABLET PO SCH ×3 (05:45→20:33)
[2019-08-24] MEDS: AMIODARONE HCL 200 MG TABLET PO SCH ×2 (10:12→10:28)
[2019-08-24] MEDS: LOSARTAN POTASSIUM 100 MG TABLET PO SCH (10:12)
[2019-08-24] MEDS: METFORMIN HCL 500MG TABLET PO SCH ×2 (10:13→18:20)
[2019-08-24] MEDS: ASPIRIN 81MG TABLET PO SCH (10:13)
[2019-08-24] MEDS: MINOXIDIL 2.5MG TABLET PO SCH ×2 (10:14→18:20)
[2019-08-24] MEDS: METOPROLOL TARTRATE 50MG TABLET PO SCH ×2 (10:29→20:37)
[2019-08-24] MEDS: NYSTATIN POWDER 15GM TOP SCH ×3 (10:30→18:21)
[2019-08-24] MEDS: PANTOPRAZOLE SODIUM 40 MG/VIAL IV SCH (10:43)
[2019-08-24] MEDS: INSULIN GLARGINE UD 100 UNITS/ML SYR SUBCUT SCH ×2 (10:44→21:06)
[2019-08-24] MEDS: ATORVASTATIN CALCIUM 40MG TABLET PO SCH (20:31)
[2019-08-25] VITALS (7 sets, daily range): BP systolic 95–138; BP diastolic 55–83
[2019-08-25] MEDS: METOCLOPRAMIDE HCL 10MG/2ML VIAL IV SCH ×4 (05:22→23:17)
[2019-08-25] MEDS: SUCRALFATE 1 G/10 ML UDC GT SCH ×4 (05:22→23:17)
[2019-08-25] MEDS: DILTIAZEM HCL 60MG TABLET PO SCH ×3 (05:24→22:00)
[2019-08-25] MEDS: INSULIN LISPRO 100 UNITS/ML SUBCUT SCH ×8 (05:24→23:26)
[2019-08-25] MEDS: HYDRALAZINE HCL 100MG TABLET PO SCH ×3 (05:24→22:00)
[2019-08-25] MEDS: BLOOD SUGAR DIAGNOSTIC STRIP TEST SCH ×4 (05:25→23:25)
[2019-08-25] MEDS: PANTOPRAZOLE SODIUM 40 MG/VIAL IV SCH (08:31)
[2019-08-25] MEDS: ASPIRIN 81MG TABLET PO SCH (08:31)
[2019-08-25] MEDS: METFORMIN HCL 500MG TABLET PO SCH ×2 (08:31→17:19)
[2019-08-25] MEDS: MINOXIDIL 2.5MG TABLET PO SCH ×2 (08:31→17:00)
[2019-08-25] MEDS: METOPROLOL TARTRATE 50MG TABLET PO SCH ×2 (08:33→21:00)
[2019-08-25] MEDS: LOSARTAN POTASSIUM 100 MG TABLET PO SCH (10:04)
[2019-08-25] MEDS: NYSTATIN POWDER 15GM TOP SCH ×3 (10:06→17:21)
[2019-08-25] MEDS: INSULIN GLARGINE UD 100 UNITS/ML SYR SUBCUT SCH ×2 (10:49→23:29)
[2019-08-25] MEDS: ATORVASTATIN CALCIUM 40MG TABLET PO SCH (23:17)
[2019-08-26] VITALS (8 sets, daily range): BP systolic 104–143; BP diastolic 56–72
[2019-08-26] MEDS: INSULIN LISPRO 100 UNITS/ML SUBCUT SCH ×4 (06:00→23:27)
[2019-08-26] MEDS: HYDRALAZINE HCL 100MG TABLET PO SCH ×3 (06:00→23:14)
[2019-08-26] MEDS: SUCRALFATE 1 G/10 ML UDC GT SCH ×4 (06:14→23:14)
[2019-08-26] MEDS: METOCLOPRAMIDE HCL 10MG/2ML VIAL IV SCH ×4 (06:14→23:15)
[2019-08-26] MEDS: BLOOD SUGAR DIAGNOSTIC STRIP TEST SCH ×4 (06:14→23:27)
[2019-08-26] MEDS: DILTIAZEM HCL 60MG TABLET PO SCH ×3 (06:16→23:14)
[2019-08-26] MEDS: METFORMIN HCL 500MG TABLET PO SCH ×2 (08:11→17:07)
[2019-08-26] MEDS: PANTOPRAZOLE SODIUM 40 MG/VIAL IV SCH (08:11)
[2019-08-26] MEDS: LOSARTAN POTASSIUM 100 MG TABLET PO SCH (08:12)
[2019-08-26] MEDS: ASPIRIN 81MG TABLET PO SCH (08:12)
[2019-08-26] MEDS: METOPROLOL TARTRATE 50MG TABLET PO SCH ×2 (08:13→21:00)
[2019-08-26] MEDS: MINOXIDIL 2.5MG TABLET PO SCH ×2 (08:13→17:08)
[2019-08-26] MEDS: AMIODARONE HCL 200 MG TABLET PO SCH (08:13)
[2019-08-26] MEDS: NYSTATIN POWDER 15GM TOP SCH ×3 (08:14→17:07)
[2019-08-26] MEDS: INSULIN GLARGINE UD 100 UNITS/ML SYR SUBCUT SCH ×2 (10:55→23:28)
[2019-08-26] MEDS: ATORVASTATIN CALCIUM 40MG TABLET PO SCH (23:14)
[2019-08-27] VITALS (12 sets, daily range): BP systolic 98–142; BP diastolic 52–79
[2019-08-27] MEDS: HYDRALAZINE HCL 100MG TABLET PO SCH ×3 (05:36→22:00)
[2019-08-27] MEDS: INSULIN LISPRO 100 UNITS/ML SUBCUT SCH ×4 (05:36→23:16)
[2019-08-27] MEDS: BLOOD SUGAR DIAGNOSTIC STRIP TEST SCH ×4 (05:36→23:16)
[2019-08-27] MEDS: SUCRALFATE 1 G/10 ML UDC GT SCH ×4 (05:37→23:16)
[2019-08-27] MEDS: DILTIAZEM HCL 60MG TABLET PO SCH ×3 (05:37→22:00)
[2019-08-27] MEDS: METOCLOPRAMIDE HCL 10MG/2ML VIAL IV SCH ×4 (05:37→23:16)
[2019-08-27 06:38] LABS: HEMATOCRIT 40.5 % (36.0-48.0); HEMOGLOBIN 13.5 g/dL (12.0-16.0); MEAN CORPUSCULAR HEMOGLOBIN 29.8 pg (28.0-32.0); MEAN CORPUSCULAR VOLUME 89.3 fL (81.0-99.0); PLATELET 258 x1000/uL (130-400); RED BLOOD CELL COUNT 4.53 mill/uL (4.2-5.4); RED CELL DISTRIBUTION WIDTH 14.3 % (11.6-14.6)
[2019-08-27 07:33] LABS: CHLORIDE 109 mEq/L (98-107)
[2019-08-27] MEDS: MINOXIDIL 2.5MG TABLET PO SCH ×2 (08:03→17:06)
[2019-08-27] MEDS: METOPROLOL TARTRATE 50MG TABLET PO SCH ×2 (08:04→21:00)
[2019-08-27] MEDS: AMIODARONE HCL 200 MG TABLET PO SCH (08:05)
[2019-08-27] MEDS: PANTOPRAZOLE SODIUM 40 MG/VIAL IV SCH (08:05)
[2019-08-27] MEDS: LOSARTAN POTASSIUM 100 MG TABLET PO SCH (08:05)
[2019-08-27] MEDS: METFORMIN HCL 500MG TABLET PO SCH ×2 (08:05→17:57)
[2019-08-27] MEDS: ASPIRIN 81MG TABLET PO SCH (08:05)
[2019-08-27] MEDS: NYSTATIN POWDER 15GM TOP SCH ×3 (08:06→17:07)
[2019-08-27] MEDS: INSULIN GLARGINE UD 100 UNITS/ML SYR SUBCUT SCH ×2 (10:19→22:00)
[2019-08-27] MEDS: DEXTROSE 50% WATER 50ML SYRINGE IV PRN (17:07)
[2019-08-27] MEDS: ATORVASTATIN CALCIUM 40MG TABLET PO SCH (22:27)
[2019-08-28] VITALS (10 sets, daily range): BP systolic 111–151; BP diastolic 62–79
[2019-08-28] MEDS: SUCRALFATE 1 G/10 ML UDC GT SCH ×4 (05:44→23:59)
[2019-08-28] MEDS: DILTIAZEM HCL 60MG TABLET PO SCH ×3 (05:44→20:52)
[2019-08-28] MEDS: METOCLOPRAMIDE HCL 10MG/2ML VIAL IV SCH ×4 (05:44→23:59)
[2019-08-28] MEDS: BLOOD SUGAR DIAGNOSTIC STRIP TEST SCH ×3 (06:00→17:06)
[2019-08-28] MEDS: INSULIN LISPRO 100 UNITS/ML SUBCUT SCH ×3 (06:00→17:06)
[2019-08-28] MEDS: HYDRALAZINE HCL 100MG TABLET PO SCH ×3 (06:50→20:51)
[2019-08-28] MEDS: PANTOPRAZOLE SODIUM 40 MG/VIAL IV SCH (08:26)
[2019-08-28] MEDS: ASPIRIN 81MG TABLET PO SCH (08:26)
[2019-08-28] MEDS: METOPROLOL TARTRATE 50MG TABLET PO SCH ×2 (08:27→20:50)
[2019-08-28] MEDS: AMIODARONE HCL 200 MG TABLET PO SCH (08:27)
[2019-08-28] MEDS: LOSARTAN POTASSIUM 100 MG TABLET PO SCH (08:27)
[2019-08-28] MEDS: MINOXIDIL 2.5MG TABLET PO SCH ×2 (08:27→17:05)
[2019-08-28] MEDS: METFORMIN HCL 500MG TABLET PO SCH ×2 (08:28→17:05)
[2019-08-28] MEDS: NYSTATIN POWDER 15GM TOP SCH ×3 (08:29→17:05)
[2019-08-28] MEDS: INSULIN GLARGINE UD 100 UNITS/ML SYR SUBCUT SCH ×2 (10:56→22:45)
[2019-08-28] MEDS: ATORVASTATIN CALCIUM 40MG TABLET PO SCH (20:51)
[2019-08-28] MEDS: DEXTROSE 50% WATER 50ML SYRINGE IV PRN (21:34)
[2019-08-29] VITALS: BP 123/68
[2019-08-29] MEDS: DEXTROSE 50% WATER 50ML SYRINGE IV PRN ×3 (00:22→23:06)
[2019-08-29] MEDS: METOCLOPRAMIDE HCL 10MG/2ML VIAL IV SCH ×4 (05:53→23:17)
[2019-08-29] MEDS: SUCRALFATE 1 G/10 ML UDC GT SCH ×4 (05:53→23:17)
[2019-08-29] MEDS: DILTIAZEM HCL 60MG TABLET PO SCH ×3 (05:54→21:44)
[2019-08-29] MEDS: HYDRALAZINE HCL 100MG TABLET PO SCH ×3 (05:56→21:44)
[2019-08-29] MEDS: BLOOD SUGAR DIAGNOSTIC STRIP TEST SCH ×5 (05:57→23:21)
[2019-08-29] MEDS: INSULIN LISPRO 100 UNITS/ML SUBCUT SCH ×5 (06:00→23:21)
[2019-08-29 08:00] VITALS: BP 126/71
[2019-08-29] MEDS: PANTOPRAZOLE SODIUM 40 MG/VIAL IV SCH (08:39)
[2019-08-29] MEDS: ASPIRIN 81MG TABLET PO SCH (08:39)
[2019-08-29] MEDS: MINOXIDIL 2.5MG TABLET PO SCH ×2 (08:40→18:00)
[2019-08-29] MEDS: METFORMIN HCL 500MG TABLET PO SCH ×2 (08:41→17:56)
[2019-08-29] MEDS: AMIODARONE HCL 200 MG TABLET PO SCH (08:53)
[2019-08-29] MEDS: NYSTATIN POWDER 15GM TOP SCH ×3 (08:55→18:03)
[2019-08-29] MEDS: LOSARTAN POTASSIUM 100 MG TABLET PO SCH (08:58)
[2019-08-29] MEDS: METOPROLOL TARTRATE 50MG TABLET PO SCH ×2 (08:59→20:17)
[2019-08-29] MEDS: INSULIN GLARGINE UD 100 UNITS/ML SYR SUBCUT SCH ×2 (11:37→22:03)
[2019-08-29 12:00] VITALS: BP 104/56
[2019-08-29 15:46] VITALS: BP 125/72
[2019-08-29 20:00] VITALS: BP 114/72
[2019-08-29] MEDS: ATORVASTATIN CALCIUM 40MG TABLET PO SCH (20:18)
[2019-08-30] VITALS: BP 129/75
[2019-08-30 03:48] VITALS: BP 137/73
[2019-08-30] MEDS: METOCLOPRAMIDE HCL 10MG/2ML VIAL IV SCH ×4 (06:00→23:42)
[2019-08-30] MEDS: INSULIN LISPRO 100 UNITS/ML SUBCUT SCH ×4 (06:00→23:44)
[2019-08-30] MEDS: SUCRALFATE 1 G/10 ML UDC GT SCH ×4 (06:00→23:42)
[2019-08-30] MEDS: HYDRALAZINE HCL 100MG TABLET PO SCH ×3 (06:00→22:29)
[2019-08-30] MEDS: DILTIAZEM HCL 60MG TABLET PO SCH ×3 (06:00→22:29)
[2019-08-30] MEDS: BLOOD SUGAR DIAGNOSTIC STRIP TEST SCH ×4 (06:01→23:45)
[2019-08-30 07:51] VITALS: BP 117/74
[2019-08-30] MEDS: ASPIRIN 81MG TABLET PO SCH (08:07)
[2019-08-30] MEDS: METFORMIN HCL 500MG TABLET PO SCH ×2 (08:07→17:06)
[2019-08-30] MEDS: MINOXIDIL 2.5MG TABLET PO SCH ×2 (08:07→16:42)
[2019-08-30] MEDS: PANTOPRAZOLE SODIUM 40 MG/VIAL IV SCH (08:07)
[2019-08-30] MEDS: METOPROLOL TARTRATE 50MG TABLET PO SCH ×2 (08:12→20:31)
[2019-08-30] MEDS: NYSTATIN POWDER 15GM TOP SCH ×3 (08:13→17:00)
[2019-08-30] MEDS: AMIODARONE HCL 200 MG TABLET PO SCH (08:13)
[2019-08-30] MEDS: LOSARTAN POTASSIUM 100 MG TABLET PO SCH (09:00)
[2019-08-30] MEDS: INSULIN GLARGINE UD 100 UNITS/ML SYR SUBCUT SCH ×2 (09:19→22:31)
[2019-08-30 12:00] VITALS: BP 133/79
[2019-08-30 16:00] VITALS: BP 100/52
[2019-08-30 20:02] VITALS: BP 107/57
[2019-08-30] MEDS: ATORVASTATIN CALCIUM 40MG TABLET PO SCH (20:31)
[2019-08-31] VITALS (7 sets, daily range): BP systolic 103–145; BP diastolic 55–75
[2019-08-31] MEDS: HYDRALAZINE HCL 100MG TABLET PO SCH ×4 (05:13→21:04)
[2019-08-31] MEDS: DILTIAZEM HCL 60MG TABLET PO SCH ×3 (05:13→21:04)
[2019-08-31] MEDS: SUCRALFATE 1 G/10 ML UDC GT SCH ×3 (05:14→17:50)
[2019-08-31] MEDS: METOCLOPRAMIDE HCL 10MG/2ML VIAL IV SCH ×3 (05:14→17:50)
[2019-08-31] MEDS: INSULIN LISPRO 100 UNITS/ML SUBCUT SCH ×3 (05:16→17:50)
[2019-08-31] MEDS: BLOOD SUGAR DIAGNOSTIC STRIP TEST SCH ×3 (05:16→17:51)
[2019-08-31] MEDS: METFORMIN HCL 500MG TABLET PO SCH ×2 (09:58→17:41)
[2019-08-31] MEDS: METOPROLOL TARTRATE 50MG TABLET PO SCH ×2 (10:00→20:29)
[2019-08-31] MEDS: MINOXIDIL 2.5MG TABLET PO SCH ×2 (10:00→17:44)
[2019-08-31] MEDS: LOSARTAN POTASSIUM 100 MG TABLET PO SCH (10:00)
[2019-08-31] MEDS: PANTOPRAZOLE SODIUM 40 MG/VIAL IV SCH (10:02)
[2019-08-31] MEDS: ASPIRIN 81MG TABLET PO SCH (10:02)
[2019-08-31] MEDS: AMIODARONE HCL 200 MG TABLET PO SCH (10:03)
[2019-08-31] MEDS: NYSTATIN POWDER 15GM TOP SCH ×3 (10:04→17:44)
[2019-08-31] MEDS: INSULIN GLARGINE UD 100 UNITS/ML SYR SUBCUT SCH ×2 (10:05→21:09)
[2019-08-31] MEDS: ATORVASTATIN CALCIUM 40MG TABLET PO SCH (20:29)
[2019-09-01] VITALS (12 sets, daily range): BP systolic 111–145; BP diastolic 70–88
[2019-09-01] MEDS: BLOOD SUGAR DIAGNOSTIC STRIP TEST SCH ×2 (00:37→06:20)
[2019-09-01] MEDS: METOCLOPRAMIDE HCL 10MG/2ML VIAL IV SCH ×4 (00:40→17:43)
[2019-09-01] MEDS: SUCRALFATE 1 G/10 ML UDC GT SCH ×4 (00:40→17:43)
[2019-09-01] MEDS: INSULIN LISPRO 100 UNITS/ML SUBCUT SCH ×2 (06:00)
[2019-09-01] MEDS: DILTIAZEM HCL 60MG TABLET PO SCH ×3 (06:20→22:13)
[2019-09-01] MEDS: HYDRALAZINE HCL 100MG TABLET PO SCH ×3 (06:20→22:12)
[2019-09-01] MEDS: PANTOPRAZOLE SODIUM 40 MG/VIAL IV SCH (09:25)
[2019-09-01] MEDS: METOPROLOL TARTRATE 50MG TABLET PO SCH ×2 (09:25→22:12)
[2019-09-01] MEDS: AMIODARONE HCL 200 MG TABLET PO SCH (09:25)
[2019-09-01] MEDS: LOSARTAN POTASSIUM 100 MG TABLET PO SCH (09:25)
[2019-09-01] MEDS: ASPIRIN 81MG TABLET PO SCH (09:26)
[2019-09-01] MEDS: METFORMIN HCL 500MG TABLET PO SCH ×2 (09:26→17:43)
[2019-09-01] MEDS: MINOXIDIL 2.5MG TABLET PO SCH ×2 (09:26→17:43)
[2019-09-01] MEDS: NYSTATIN POWDER 15GM TOP SCH ×3 (09:27→17:58)
[2019-09-01] MEDS: INSULIN GLARGINE UD 100 UNITS/ML SYR SUBCUT SCH ×2 (10:47→22:00)
[2019-09-01] MEDS ORDERED: DEXTROSE 50% WATER 50ML SYRINGE IV PRN (20:15)
[2019-09-01] MEDS: ATORVASTATIN CALCIUM 40MG TABLET PO SCH (22:13)
[2019-09-02] VITALS: BP 125/71
[2019-09-02] MEDS: SUCRALFATE 1 G/10 ML UDC GT SCH ×5 (01:09→17:47)
[2019-09-02] MEDS: METOCLOPRAMIDE HCL 10MG/2ML VIAL IV SCH ×5 (01:10→17:47)
[2019-09-02 04:00] VITALS: BP 131/69
[2019-09-02] MEDS: DILTIAZEM HCL 60MG TABLET PO SCH ×3 (06:00→22:11)
[2019-09-02] MEDS: HYDRALAZINE HCL 100MG TABLET PO SCH ×3 (06:00→22:11)
[2019-09-02] MEDS: INSULIN LISPRO 100 UNITS/ML SUBCUT SCH ×4 (06:00→18:00)
[2019-09-02] MEDS: BLOOD SUGAR DIAGNOSTIC STRIP TEST SCH ×4 (06:19→18:00)
[2019-09-02 07:45] VITALS: BP 133/73
[2019-09-02] MEDS: PANTOPRAZOLE SODIUM 40 MG/VIAL IV SCH (08:17)
[2019-09-02] MEDS: MINOXIDIL 2.5MG TABLET PO SCH ×2 (08:18→17:37)
[2019-09-02] MEDS: LOSARTAN POTASSIUM 100 MG TABLET PO SCH (08:18)
[2019-09-02] MEDS: METFORMIN HCL 500MG TABLET PO SCH ×3 (08:18→17:48)
[2019-09-02] MEDS: ASPIRIN 81MG TABLET PO SCH (08:18)
[2019-09-02] MEDS: METOPROLOL TARTRATE 50MG TABLET PO SCH ×2 (08:19→22:11)
[2019-09-02] MEDS: AMIODARONE HCL 200 MG TABLET PO SCH (08:20)
[2019-09-02] MEDS: NYSTATIN POWDER 15GM TOP SCH ×3 (08:20→17:35)
[2019-09-02] MEDS: INSULIN GLARGINE UD 100 UNITS/ML SYR SUBCUT SCH (10:01)
[2019-09-02 12:00] VITALS: BP 126/69
[2019-09-02 16:00] VITALS: BP 147/76
[2019-09-02 20:00] VITALS: BP 147/82
[2019-09-03] VITALS: BP 129/72
[2019-09-03] MEDS: INSULIN GLARGINE UD 100 UNITS/ML SYR SUBCUT SCH ×3 (00:27→23:23)
[2019-09-03] MEDS: BLOOD SUGAR DIAGNOSTIC STRIP TEST SCH ×5 (00:28→23:18)
[2019-09-03] MEDS: SUCRALFATE 1 G/10 ML UDC GT SCH ×5 (00:28→23:18)
[2019-09-03] MEDS: METOCLOPRAMIDE HCL 10MG/2ML VIAL IV SCH ×5 (00:28→23:18)
[2019-09-03 04:00] VITALS: BP 132/69
[2019-09-03] MEDS: HYDRALAZINE HCL 100MG TABLET PO SCH ×3 (05:58→20:52)
[2019-09-03] MEDS: DILTIAZEM HCL 60MG TABLET PO SCH ×3 (05:59→20:52)
[2019-09-03] MEDS: INSULIN LISPRO 100 UNITS/ML SUBCUT SCH ×5 (06:00→23:24)
[2019-09-03 08:00] VITALS: BP 101/70
[2019-09-03] MEDS: PANTOPRAZOLE SODIUM 40 MG/VIAL IV SCH (08:41)
[2019-09-03] MEDS: METFORMIN HCL 500MG TABLET PO SCH ×2 (08:42→18:24)
[2019-09-03] MEDS: MINOXIDIL 2.5MG TABLET PO SCH ×2 (08:42→17:00)
[2019-09-03] MEDS: ASPIRIN 81MG TABLET PO SCH (08:42)
[2019-09-03] MEDS: AMIODARONE HCL 200 MG TABLET PO SCH (08:42)
[2019-09-03] MEDS: METOPROLOL TARTRATE 50MG TABLET PO SCH ×2 (08:42→20:53)
[2019-09-03] MEDS: NYSTATIN POWDER 15GM TOP SCH ×3 (08:43→18:12)
[2019-09-03] MEDS ORDERED: ACETAMINOPHEN WITH CODEINE 300/30MG TABLET PO PRN (11:30)
[2019-09-03 12:00] VITALS: BP 114/65
[2019-09-03 16:00] VITALS: BP 138/75
[2019-09-03 20:00] VITALS: BP 135/70
[2019-09-04] VITALS (7 sets, daily range): BP systolic 118–144; BP diastolic 59–74
[2019-09-04] MEDS: INSULIN LISPRO 100 UNITS/ML SUBCUT SCH ×4 (05:38→23:33)
[2019-09-04] MEDS: BLOOD SUGAR DIAGNOSTIC STRIP TEST SCH ×4 (05:38→23:33)
[2019-09-04] MEDS: METOCLOPRAMIDE HCL 10MG/2ML VIAL IV SCH ×4 (05:54→23:41)
[2019-09-04] MEDS: SUCRALFATE 1 G/10 ML UDC GT SCH ×4 (05:54→23:40)
[2019-09-04] MEDS: HYDRALAZINE HCL 100MG TABLET PO SCH ×3 (05:55→21:46)
[2019-09-04] MEDS: DILTIAZEM HCL 60MG TABLET PO SCH ×3 (05:55→21:46)
[2019-09-04 06:17] LABS: BASOPHILS % 1.1 % (0.0-2.0); EOSINOPHILS % 3.6 % (0.0-5.0); HEMATOCRIT. 30.9 % (36.0-48.0); LYMPHOCYTES % 22.7 % (20.0-50.0); MEAN CORPUSCULAR HEMOGLOBIN 29.4 pg (28.0-32.0); MEAN CORPUSCULAR VOLUME 90.5 fL (81.0-99.0); MEAN PLATELET VOLUME 9.4 fl (7.4-10.4); NEUTROPHILS % 61.6 % (40.0-76.0); PLATELET 173 x1000/uL (130-400); RED BLOOD CELL COUNT 3.42 mill/uL (4.2-5.4)
[2019-09-04 06:28] LABS: CHLORIDE 114 mEq/L (98-107)
[2019-09-04] MEDS: ASPIRIN 81MG TABLET PO SCH (08:19)
[2019-09-04] MEDS: METFORMIN HCL 500MG TABLET PO SCH ×2 (08:19→17:07)
[2019-09-04] MEDS: PANTOPRAZOLE SODIUM 40 MG/VIAL IV SCH (08:19)
[2019-09-04] MEDS: MINOXIDIL 2.5MG TABLET PO SCH ×2 (08:19→17:08)
[2019-09-04] MEDS: METOPROLOL TARTRATE 50MG TABLET PO SCH ×2 (08:24→21:46)
[2019-09-04] MEDS: AMIODARONE HCL 200 MG TABLET PO SCH (08:24)
[2019-09-04] MEDS: NYSTATIN POWDER 15GM TOP SCH ×3 (11:37→17:08)
[2019-09-04] MEDS: INSULIN GLARGINE UD 100 UNITS/ML SYR SUBCUT SCH ×2 (11:38→23:41)
[2019-09-05] VITALS (7 sets, daily range): BP systolic 114–147; BP diastolic 61–79
[2019-09-05] MEDS: DILTIAZEM HCL 60MG TABLET PO SCH ×3 (05:31→21:30)
[2019-09-05] MEDS: HYDRALAZINE HCL 100MG TABLET PO SCH ×3 (05:31→21:30)
[2019-09-05] MEDS: INSULIN LISPRO 100 UNITS/ML SUBCUT SCH ×3 (05:35→18:00)
[2019-09-05] MEDS: BLOOD SUGAR DIAGNOSTIC STRIP TEST SCH ×3 (05:35→18:05)
[2019-09-05] MEDS: SUCRALFATE 1 G/10 ML UDC GT SCH ×3 (05:44→18:08)
[2019-09-05] MEDS: METOCLOPRAMIDE HCL 10MG/2ML VIAL IV SCH ×3 (05:44→18:08)
[2019-09-05] MEDS: PANTOPRAZOLE SODIUM 40 MG/VIAL IV SCH (09:10)
[2019-09-05] MEDS: AMIODARONE HCL 200 MG TABLET PO SCH (09:10)
[2019-09-05] MEDS: METFORMIN HCL 500MG TABLET PO SCH ×2 (09:10→18:00)
[2019-09-05] MEDS: MINOXIDIL 2.5MG TABLET PO SCH ×2 (09:11→18:09)
[2019-09-05] MEDS: ASPIRIN 81MG TABLET PO SCH (09:11)
[2019-09-05] MEDS: METOPROLOL TARTRATE 50MG TABLET PO SCH (09:11)
[2019-09-05] MEDS: INSULIN GLARGINE UD 100 UNITS/ML SYR SUBCUT SCH ×2 (09:14→22:00)
[2019-09-05] MEDS: NYSTATIN POWDER 15GM TOP SCH ×3 (09:16→17:00)
[2019-09-05] MEDS: METOPROLOL TARTRATE 25MG TABLET PO SCH (20:30)
[2019-09-06] VITALS: BP 115/63
[2019-09-06] MEDS: METOCLOPRAMIDE HCL 10MG/2ML VIAL IV SCH ×4 (01:09→17:01)
[2019-09-06] MEDS: SUCRALFATE 1 G/10 ML UDC GT SCH ×4 (01:09→17:01)
[2019-09-06] MEDS: BLOOD SUGAR DIAGNOSTIC STRIP TEST SCH ×4 (01:09→17:39)
[2019-09-06 04:13] VITALS: BP 128/77
[2019-09-06] MEDS: INSULIN LISPRO 100 UNITS/ML SUBCUT SCH ×4 (05:25→17:39)
[2019-09-06] MEDS: DILTIAZEM HCL 60MG TABLET PO SCH ×3 (05:25→22:00)
[2019-09-06] MEDS: HYDRALAZINE HCL 100MG TABLET PO SCH ×3 (05:25→21:57)
[2019-09-06 08:00] VITALS: BP 121/71
[2019-09-06] MEDS: PANTOPRAZOLE SODIUM 40 MG/VIAL IV SCH (09:07)
[2019-09-06] MEDS: METFORMIN HCL 500MG TABLET PO SCH ×2 (09:07→17:00)
[2019-09-06] MEDS: MINOXIDIL 2.5MG TABLET PO SCH ×2 (09:08→17:01)
[2019-09-06] MEDS: METOPROLOL TARTRATE 25MG TABLET PO SCH ×2 (09:08→21:58)
[2019-09-06] MEDS: AMIODARONE HCL 200 MG TABLET PO SCH (09:09)
[2019-09-06] MEDS: NYSTATIN POWDER 15GM TOP SCH ×3 (09:11→17:02)
[2019-09-06] MEDS: INSULIN GLARGINE UD 100 UNITS/ML SYR SUBCUT SCH (10:00)
[2019-09-06 12:00] VITALS: BP 129/67
[2019-09-06 16:00] VITALS: BP 135/77
[2019-09-06 20:00] VITALS: BP 125/74
[2019-09-07] VITALS: BP 130/72
[2019-09-07] MEDS: BLOOD SUGAR DIAGNOSTIC STRIP TEST SCH ×5 (00:32→23:51)
[2019-09-07] MEDS: SUCRALFATE 1 G/10 ML UDC GT SCH ×5 (00:32→23:12)
[2019-09-07] MEDS: HYDRALAZINE HCL 100MG TABLET PO SCH ×3 (05:23→21:40)
[2019-09-07] MEDS: INSULIN LISPRO 100 UNITS/ML SUBCUT SCH ×5 (05:26→23:51)
[2019-09-07] MEDS: DILTIAZEM HCL 60MG TABLET PO SCH ×3 (05:26→21:40)
[2019-09-07 08:00] VITALS: BP 116/69
[2019-09-07] MEDS: PANTOPRAZOLE SODIUM 40 MG/VIAL IV SCH (08:35)
[2019-09-07] MEDS: METFORMIN HCL 500MG TABLET PO SCH ×2 (08:35→17:17)
[2019-09-07] MEDS: AMIODARONE HCL 200 MG TABLET PO SCH (08:35)
[2019-09-07] MEDS: METOPROLOL TARTRATE 25MG TABLET PO SCH ×2 (08:36→21:39)
[2019-09-07] MEDS: NYSTATIN POWDER 15GM TOP SCH ×3 (08:36→17:19)
[2019-09-07] MEDS: MINOXIDIL 2.5MG TABLET PO SCH ×2 (08:36→17:18)
[2019-09-07] MEDS: METOCLOPRAMIDE 10MG/10 ML UDC GT SCH ×3 (08:53→17:18)
[2019-09-07 12:00] VITALS: BP 132/66
[2019-09-07 16:00] VITALS: BP 127/69
[2019-09-07 20:00] VITALS: BP 122/65
[2019-09-07 22:00] VITALS: BP 118/78
[2019-09-08] VITALS (11 sets, daily range): BP systolic 109–148; BP diastolic 57–85
[2019-09-08] MEDS: SUCRALFATE 1 G/10 ML UDC GT SCH ×3 (05:00→17:55)
[2019-09-08] MEDS: HYDRALAZINE HCL 100MG TABLET PO SCH ×3 (05:00→21:59)
[2019-09-08] MEDS: DILTIAZEM HCL 60MG TABLET PO SCH ×3 (05:01→21:59)
[2019-09-08] MEDS: INSULIN LISPRO 100 UNITS/ML SUBCUT SCH ×3 (05:01→18:14)
[2019-09-08] MEDS: BLOOD SUGAR DIAGNOSTIC STRIP TEST SCH ×3 (05:01→17:58)
[2019-09-08] MEDS: METFORMIN HCL 500MG TABLET PO SCH ×2 (09:52→18:16)
[2019-09-08] MEDS: METOCLOPRAMIDE 10MG/10 ML UDC GT SCH ×3 (09:52→17:55)
[2019-09-08] MEDS: METOPROLOL TARTRATE 25MG TABLET PO SCH ×2 (09:53→21:58)
[2019-09-08] MEDS: AMIODARONE HCL 200 MG TABLET PO SCH (09:53)
[2019-09-08] MEDS: MINOXIDIL 2.5MG TABLET PO SCH ×3 (09:53→17:55)
[2019-09-08] MEDS: PANTOPRAZOLE SODIUM 40 MG/VIAL IV SCH (09:53)
[2019-09-08] MEDS: NYSTATIN POWDER 15GM TOP SCH ×3 (09:54→17:55)
[2019-09-09] VITALS (8 sets, daily range): BP systolic 111–159; BP diastolic 52–86
[2019-09-09] MEDS: SUCRALFATE 1 G/10 ML UDC GT SCH ×4 (00:21→17:23)
[2019-09-09] MEDS: HYDRALAZINE HCL 100MG TABLET PO SCH ×3 (05:28→21:19)
[2019-09-09] MEDS: INSULIN LISPRO 100 UNITS/ML SUBCUT SCH ×4 (05:35→17:17)
[2019-09-09] MEDS: DILTIAZEM HCL 60MG TABLET PO SCH ×3 (05:35→21:19)
[2019-09-09] MEDS: BLOOD SUGAR DIAGNOSTIC STRIP TEST SCH ×4 (06:00→17:17)
[2019-09-09] MEDS: PANTOPRAZOLE SODIUM 40 MG/VIAL IV SCH (09:04)
[2019-09-09] MEDS: METOPROLOL TARTRATE 25MG TABLET PO SCH ×2 (09:08→21:19)
[2019-09-09] MEDS: MINOXIDIL 2.5MG TABLET PO SCH ×2 (09:09→17:25)
[2019-09-09] MEDS: AMIODARONE HCL 200 MG TABLET PO SCH (09:09)
[2019-09-09] MEDS: METFORMIN HCL 500MG TABLET PO SCH ×2 (09:09→17:23)
[2019-09-09] MEDS: METOCLOPRAMIDE 10MG/10 ML UDC GT SCH ×3 (09:10→17:23)
[2019-09-09] MEDS: NYSTATIN POWDER 15GM TOP SCH ×3 (09:21→17:23)
[2019-09-10] VITALS (8 sets, daily range): BP systolic 117–134; BP diastolic 63–80
[2019-09-10] MEDS: DILTIAZEM HCL 60MG TABLET PO SCH ×3 (05:01→20:52)
[2019-09-10] MEDS: HYDRALAZINE HCL 100MG TABLET PO SCH ×3 (05:02→20:52)
[2019-09-10] MEDS: INSULIN LISPRO 100 UNITS/ML SUBCUT SCH ×5 (05:30→23:45)
[2019-09-10] MEDS: BLOOD SUGAR DIAGNOSTIC STRIP TEST SCH ×5 (05:30→23:46)
[2019-09-10] MEDS: PANTOPRAZOLE SODIUM 40 MG/VIAL IV SCH (08:25)
[2019-09-10] MEDS: MINOXIDIL 2.5MG TABLET PO SCH ×2 (08:25→17:36)
[2019-09-10] MEDS: METFORMIN HCL 500MG TABLET PO SCH ×2 (08:25→17:36)
[2019-09-10] MEDS: METOCLOPRAMIDE 10MG/10 ML UDC GT SCH ×3 (08:25→17:35)
[2019-09-10] MEDS: AMIODARONE HCL 200 MG TABLET PO SCH (08:26)
[2019-09-10] MEDS: NYSTATIN POWDER 15GM TOP SCH ×3 (08:26→17:35)
[2019-09-10] MEDS: METOPROLOL TARTRATE 25MG TABLET PO SCH ×2 (08:26→20:51)
[2019-09-10] MEDS ORDERED: ACETAMINOPHEN WITH CODEINE 300/30MG TABLET PO PRN (10:30)
[2019-09-11] VITALS: BP 133/79
[2019-09-11 04:00] VITALS: BP 135/75
[2019-09-11] MEDS: BLOOD SUGAR DIAGNOSTIC STRIP TEST SCH ×4 (05:29→23:11)
[2019-09-11] MEDS: INSULIN LISPRO 100 UNITS/ML SUBCUT SCH ×4 (05:29→23:20)
[2019-09-11] MEDS: DILTIAZEM HCL 60MG TABLET PO SCH ×3 (05:30→21:22)
[2019-09-11] MEDS: HYDRALAZINE HCL 100MG TABLET PO SCH ×3 (05:30→21:22)
[2019-09-11 08:00] VITALS: BP 114/67
[2019-09-11] MEDS: METOCLOPRAMIDE 10MG/10 ML UDC GT SCH ×3 (08:43→17:24)
[2019-09-11] MEDS: METFORMIN HCL 500MG TABLET PO SCH ×2 (08:44→17:24)
[2019-09-11] MEDS: METOPROLOL TARTRATE 25MG TABLET PO SCH ×2 (08:44→21:21)
[2019-09-11] MEDS: MINOXIDIL 2.5MG TABLET PO SCH ×2 (08:45→17:25)
[2019-09-11] MEDS: NYSTATIN POWDER 15GM TOP SCH ×3 (08:45→17:21)
[2019-09-11 12:00] VITALS: BP 130/79
[2019-09-11 13:01] LABS: BASOPHILS % 0.8 % (0.0-2.0); EOSINOPHILS % 1.4 % (0.0-5.0); HEMATOCRIT. 37.1 % (36.0-48.0); HEMOGLOBIN. 12.4 g/dL (12.0-16.0); LYMPHOCYTES % 17.7 % (20.0-50.0); MEAN CORPUSCULAR HEMOGLOBIN 29.7 pg (28.0-32.0); MEAN CORPUSCULAR VOLUME 89.1 fL (81.0-99.0); MEAN PLATELET VOLUME 9.2 fl (7.4-10.4); MONOCYTES % 12.2 % (2.0-8.0); NEUTROPHILS % 67.9 % (40.0-76.0); PLATELET 184 x1000/uL (130-400); RED BLOOD CELL COUNT 4.16 mill/uL (4.2-5.4); RED CELL DISTRIBUTION WIDTH 15.6 % (11.6-14.6)
[2019-09-11 13:07] LABS: CHLORIDE 109 mEq/L (98-107)
[2019-09-11 16:00] VITALS: BP 110/61
[2019-09-11 20:00] VITALS: BP 118/65
[2019-09-12] VITALS: BP 133/69
[2019-09-12 04:15] VITALS: BP 164/94
[2019-09-12] MEDS: HYDRALAZINE HCL 100MG TABLET PO SCH ×3 (05:02→22:00)
[2019-09-12] MEDS: BLOOD SUGAR DIAGNOSTIC STRIP TEST SCH ×3 (05:03→17:13)
[2019-09-12] MEDS: DILTIAZEM HCL 60MG TABLET PO SCH ×3 (05:03→22:00)
[2019-09-12] MEDS: INSULIN LISPRO 100 UNITS/ML SUBCUT SCH ×3 (05:03→17:16)
[2019-09-12 08:00] VITALS: BP 124/68
[2019-09-12] MEDS: METOPROLOL TARTRATE 25MG TABLET PO SCH ×2 (08:22→20:40)
[2019-09-12] MEDS: METFORMIN HCL 500MG TABLET PO SCH ×2 (08:22→17:11)
[2019-09-12] MEDS: METOCLOPRAMIDE 10MG/10 ML UDC GT SCH ×3 (08:23→16:33)
[2019-09-12] MEDS: NYSTATIN POWDER 15GM TOP SCH ×3 (08:23→16:34)
[2019-09-12] MEDS: MINOXIDIL 2.5MG TABLET PO SCH ×2 (08:23→16:33)
[2019-09-12 12:00] VITALS: BP 134/68
[2019-09-12 16:00] VITALS: BP 117/53
[2019-09-12 20:00] VITALS: BP 101/55
[2019-09-13] VITALS: BP 142/89
[2019-09-13] MEDS: BLOOD SUGAR DIAGNOSTIC STRIP TEST SCH ×4 (00:43→17:10)
[2019-09-13 04:00] VITALS: BP 113/93
[2019-09-13] MEDS: DILTIAZEM HCL 60MG TABLET PO SCH ×3 (05:28→21:26)
[2019-09-13] MEDS: HYDRALAZINE HCL 100MG TABLET PO SCH ×3 (05:28→21:25)
[2019-09-13] MEDS: INSULIN LISPRO 100 UNITS/ML SUBCUT SCH ×4 (05:40→17:24)
[2019-09-13 08:00] VITALS: BP 118/54
[2019-09-13] MEDS: METFORMIN HCL 500MG TABLET PO SCH ×2 (09:10→17:07)
[2019-09-13] MEDS: NYSTATIN POWDER 15GM TOP SCH ×3 (09:10→17:07)
[2019-09-13] MEDS: METOPROLOL TARTRATE 25MG TABLET PO SCH ×2 (09:13→21:25)
[2019-09-13] MEDS: METOCLOPRAMIDE 10MG/10 ML UDC GT SCH ×3 (09:13→17:07)
[2019-09-13] MEDS: MINOXIDIL 2.5MG TABLET PO SCH ×2 (09:14→17:00)
[2019-09-13 12:00] VITALS: BP_SYST 105; BP_DIAS 61; BP_DIAS 63
[2019-09-13 12:56] VITALS: BP 105/61
[2019-09-13 20:00] VITALS: BP 151/73
[2019-09-14] VITALS: BP 129/72
[2019-09-14] MEDS: BLOOD SUGAR DIAGNOSTIC STRIP TEST SCH ×4 (00:34→18:00)
[2019-09-14] MEDS: INSULIN LISPRO 100 UNITS/ML SUBCUT SCH ×4 (00:39→17:48)
[2019-09-14 04:00] VITALS: BP 157/76
[2019-09-14] MEDS: HYDRALAZINE HCL 100MG TABLET PO SCH ×3 (05:26→21:27)
[2019-09-14] MEDS: DILTIAZEM HCL 60MG TABLET PO SCH ×3 (05:54→21:25)
[2019-09-14 08:00] VITALS: BP 150/66
[2019-09-14] MEDS: METOCLOPRAMIDE 10MG/10 ML UDC GT SCH ×3 (08:46→17:38)
[2019-09-14] MEDS: METFORMIN HCL 500MG TABLET PO SCH ×2 (08:46→17:39)
[2019-09-14] MEDS: MINOXIDIL 2.5MG TABLET PO SCH ×2 (08:46→17:39)
[2019-09-14] MEDS: METOPROLOL TARTRATE 25MG TABLET PO SCH ×2 (08:46→21:27)
[2019-09-14] MEDS: NYSTATIN POWDER 15GM TOP SCH ×3 (08:47→17:39)
[2019-09-14 12:00] VITALS: BP 143/81
[2019-09-14 16:00] VITALS: BP 145/65
[2019-09-14 20:00] VITALS: BP 157/77
[2019-09-15] VITALS: BP 120/69
[2019-09-15 04:00] VITALS: BP 139/68
[2019-09-15] MEDS: HYDRALAZINE HCL 100MG TABLET PO SCH ×2 (05:44→14:00)
[2019-09-15] MEDS: DILTIAZEM HCL 60MG TABLET PO SCH ×3 (05:44→21:56)
[2019-09-15] MEDS: BLOOD SUGAR DIAGNOSTIC STRIP TEST SCH ×5 (05:50→22:50)
[2019-09-15] MEDS: INSULIN LISPRO 100 UNITS/ML SUBCUT SCH ×5 (05:51→23:51)
[2019-09-15 08:00] VITALS: BP 142/73
[2019-09-15] MEDS: METOPROLOL TARTRATE 25MG TABLET PO SCH ×2 (09:30→21:55)
[2019-09-15] MEDS: METFORMIN HCL 500MG TABLET PO SCH ×2 (09:30→17:17)
[2019-09-15] MEDS: METOCLOPRAMIDE 10MG/10 ML UDC GT SCH ×3 (09:31→16:41)
[2019-09-15] MEDS: MINOXIDIL 2.5MG TABLET PO SCH ×2 (09:31→17:16)
[2019-09-15] MEDS: NYSTATIN POWDER 15GM TOP SCH ×3 (09:31→17:17)
[2019-09-15] MEDS: LORAZEPAM 2MG/ML CPJ IV PRN ×2 (13:34→22:35)
[2019-09-15] MEDS ORDERED: LORAZEPAM 2MG/ML CPJ IV SCH (15:00)
[2019-09-15] MEDS: RISPERIDONE 1MG TABLET PO SCH (16:41)
[2019-09-15 17:09] VITALS: BP 169/79
[2019-09-15 20:00] VITALS: BP 162/77
[2019-09-15] MEDS: ENOXAPARIN 30MG/0.3ML SYR SUBCUT SCH (21:57)
[2019-09-15] MEDS: HYDRALAZINE HCL 50MG TABLET PO SCH (22:35)
[2019-09-16] VITALS: BP 144/72
[2019-09-16 04:00] VITALS: BP 165/80
[2019-09-16] MEDS: HYDRALAZINE HCL 50MG TABLET PO SCH ×3 (05:01→21:32)
[2019-09-16] MEDS: DILTIAZEM HCL 60MG TABLET PO SCH ×3 (05:01→21:33)
[2019-09-16] MEDS: BLOOD SUGAR DIAGNOSTIC STRIP TEST SCH ×4 (05:01→23:06)
[2019-09-16] MEDS: INSULIN LISPRO 100 UNITS/ML SUBCUT SCH ×4 (06:00→23:11)
[2019-09-16 08:00] VITALS: BP 150/82
[2019-09-16] MEDS: METFORMIN HCL 500MG TABLET PO SCH ×2 (08:57→17:27)
[2019-09-16] MEDS: MINOXIDIL 2.5MG TABLET PO SCH ×2 (08:57→17:00)
[2019-09-16] MEDS: RISPERIDONE 1MG TABLET PO SCH (08:57)
[2019-09-16] MEDS: METOPROLOL TARTRATE 25MG TABLET PO SCH ×2 (08:58→21:14)
[2019-09-16] MEDS: METOCLOPRAMIDE 10MG/10 ML UDC GT SCH ×3 (08:58→17:00)
[2019-09-16] MEDS: ENOXAPARIN 30MG/0.3ML SYR SUBCUT SCH ×2 (08:58→21:31)
[2019-09-16 12:00] VITALS: BP 144/85
[2019-09-16 16:00] VITALS: BP_SYST 142; BP_SYST 147; BP_DIAS 76
[2019-09-16 20:00] VITALS: BP 165/85
[2019-09-16] MEDS: LORAZEPAM 2MG/ML CPJ IV PRN (23:13)
[2019-09-17] VITALS: BP 140/78
[2019-09-17 04:00] VITALS: BP 193/100
[2019-09-17] MEDS: HYDRALAZINE HCL 50MG TABLET PO SCH ×2 (05:05→14:54)
[2019-09-17] MEDS: DILTIAZEM HCL 60MG TABLET PO SCH ×2 (05:06→14:55)
[2019-09-17] MEDS: BLOOD SUGAR DIAGNOSTIC STRIP TEST SCH ×3 (05:13→18:12)
[2019-09-17] MEDS: INSULIN LISPRO 100 UNITS/ML SUBCUT SCH ×3 (05:18→18:13)
[2019-09-17 08:00] VITALS: BP 177/97
[2019-09-17] MEDS: RISPERIDONE 1MG TABLET PO SCH (08:30)
[2019-09-17] MEDS: METOCLOPRAMIDE 10MG/10 ML UDC GT SCH ×3 (08:30→17:24)
[2019-09-17] MEDS: MINOXIDIL 2.5MG TABLET PO SCH ×2 (08:30→17:00)
[2019-09-17] MEDS: METFORMIN HCL 500MG TABLET PO SCH ×2 (08:30→17:30)
[2019-09-17] MEDS: METOPROLOL TARTRATE 25MG TABLET PO SCH ×2 (08:31→21:13)
[2019-09-17] MEDS: ENOXAPARIN 30MG/0.3ML SYR SUBCUT SCH ×3 (08:31→21:27)
[2019-09-17 12:00] VITALS: BP 132/77
[2019-09-17 16:00] VITALS: BP 103/55
[2019-09-17 20:00] VITALS: BP 131/69
[2019-09-18] VITALS: BP 137/85
[2019-09-18] MEDS: HYDRALAZINE HCL 50MG TABLET PO SCH ×4 (00:27→21:20)
[2019-09-18] MEDS: DILTIAZEM HCL 60MG TABLET PO SCH ×3 (00:27→12:26)
[2019-09-18 04:00] VITALS: BP 95/57
[2019-09-18] MEDS: BLOOD SUGAR DIAGNOSTIC STRIP TEST SCH ×4 (05:47→17:42)
[2019-09-18] MEDS: INSULIN LISPRO 100 UNITS/ML SUBCUT SCH ×4 (06:00→17:42)
[2019-09-18 08:00] VITALS: BP 116/66
[2019-09-18] MEDS: METFORMIN HCL 500MG TABLET PO SCH ×2 (08:33→17:42)
[2019-09-18] MEDS: METOPROLOL TARTRATE 25MG TABLET PO SCH ×2 (08:33→21:19)
[2019-09-18] MEDS: METOCLOPRAMIDE 10MG/10 ML UDC GT SCH ×3 (08:34→17:42)
[2019-09-18] MEDS: RISPERIDONE 1MG TABLET PO SCH (08:34)
[2019-09-18] MEDS: MINOXIDIL 2.5MG TABLET PO SCH ×3 (08:34→21:21)
[2019-09-18] MEDS: ENOXAPARIN 30MG/0.3ML SYR SUBCUT SCH ×2 (08:34→21:18)
[2019-09-18 12:00] VITALS: BP 100/58
[2019-09-18 16:00] VITALS: BP 120/77
[2019-09-18 20:00] VITALS: BP 157/83
[2019-09-19] VITALS: BP 117/68
[2019-09-19] MEDS: LORAZEPAM 2MG/ML CPJ IV PRN ×3 (00:50→20:04)
[2019-09-19 04:00] VITALS: BP 124/69
[2019-09-19] MEDS: INSULIN LISPRO 100 UNITS/ML SUBCUT SCH ×4 (06:00→17:23)
[2019-09-19] MEDS: HYDRALAZINE HCL 50MG TABLET PO SCH ×3 (06:15→22:12)
[2019-09-19] MEDS: BLOOD SUGAR DIAGNOSTIC STRIP TEST SCH ×4 (06:16→17:23)
[2019-09-19 08:00] VITALS: BP 126/65
[2019-09-19] MEDS: METFORMIN HCL 500MG TABLET PO SCH ×2 (08:25→17:45)
[2019-09-19] MEDS: RISPERIDONE 1MG TABLET PO SCH (08:26)
[2019-09-19] MEDS: MINOXIDIL 2.5MG TABLET PO SCH ×2 (08:26→21:26)
[2019-09-19] MEDS: METOPROLOL TARTRATE 25MG TABLET PO SCH ×2 (08:28→21:26)
[2019-09-19] MEDS: METOCLOPRAMIDE 10MG/10 ML UDC GT SCH ×3 (08:28→17:45)
[2019-09-19] MEDS: ENOXAPARIN 30MG/0.3ML SYR SUBCUT SCH ×2 (08:29→21:27)
[2019-09-19 12:00] VITALS: BP 103/61
[2019-09-19 16:00] VITALS: BP 135/71
[2019-09-19 20:00] VITALS: BP 138/84
[2019-09-20] VITALS (8 sets, daily range): BP systolic 92–128; BP diastolic 43–77
[2019-09-20] MEDS: BLOOD SUGAR DIAGNOSTIC STRIP TEST SCH ×5 (00:36→23:08)
[2019-09-20] MEDS: LORAZEPAM 2MG/ML CPJ IV PRN ×2 (03:56→22:38)
[2019-09-20] MEDS: HYDRALAZINE HCL 50MG TABLET PO SCH ×2 (05:50→13:41)
[2019-09-20] MEDS: INSULIN LISPRO 100 UNITS/ML SUBCUT SCH ×5 (05:55→23:14)
[2019-09-20] MEDS: MINOXIDIL 2.5MG TABLET PO SCH ×2 (09:00→20:46)
[2019-09-20] MEDS: METOPROLOL TARTRATE 25MG TABLET PO SCH ×2 (09:00→20:47)
[2019-09-20] MEDS: METFORMIN HCL 500MG TABLET PO SCH (09:43)
[2019-09-20] MEDS: ENOXAPARIN 30MG/0.3ML SYR SUBCUT SCH ×2 (09:45→21:21)
[2019-09-20] MEDS: METOCLOPRAMIDE 10MG/10 ML UDC GT SCH ×3 (09:45→17:24)
[2019-09-20] MEDS: RISPERIDONE 1MG TABLET PO SCH (10:00)
[2019-09-21] VITALS: BP 140/70
[2019-09-21 04:00] VITALS: BP 150/67
[2019-09-21] MEDS: BLOOD SUGAR DIAGNOSTIC STRIP TEST SCH ×4 (05:35→23:19)
[2019-09-21] MEDS: INSULIN LISPRO 100 UNITS/ML SUBCUT SCH ×4 (05:41→23:19)
[2019-09-21 06:55] LABS: CHLORIDE 108 mEq/L (98-107)
[2019-09-21 07:08] LABS: BASOPHILS % 0.8 % (0.0-2.0); EOSINOPHILS % 1.2 % (0.0-5.0); HEMATOCRIT. 34.9 % (36.0-48.0); HEMOGLOBIN. 11.5 g/dL (12.0-16.0); LYMPHOCYTES % 24.5 % (20.0-50.0); MEAN CORPUSCULAR HEMOGLOBIN 29.4 pg (28.0-32.0); MEAN CORPUSCULAR VOLUME 89.1 fL (81.0-99.0); MEAN PLATELET VOLUME 9.2 fl (7.4-10.4); MONOCYTES % 12.9 % (2.0-8.0); NEUTROPHILS % 60.6 % (40.0-76.0); PLATELET 251 x1000/uL (130-400); RED BLOOD CELL COUNT 3.92 mill/uL (4.2-5.4); RED CELL DISTRIBUTION WIDTH 15.7 % (11.6-14.6)
[2019-09-21 08:00] VITALS: BP 138/80
[2019-09-21] MEDS: METOPROLOL TARTRATE 25MG TABLET PO SCH ×2 (08:17→20:33)
[2019-09-21] MEDS: RISPERIDONE 1MG TABLET PO SCH (08:17)
[2019-09-21] MEDS: MINOXIDIL 2.5MG TABLET PO SCH (08:17)
[2019-09-21] MEDS: METOCLOPRAMIDE 10MG/10 ML UDC GT SCH ×3 (08:18→16:38)
[2019-09-21] MEDS: ENOXAPARIN 30MG/0.3ML SYR SUBCUT SCH ×2 (08:18→20:32)
[2019-09-21 12:35] VITALS: BP 118/68
[2019-09-21] MEDS: LORAZEPAM 2MG/ML CPJ IV PRN ×2 (13:05→20:46)
[2019-09-21 16:00] VITALS: BP 96/46
[2019-09-21 20:00] VITALS: BP 139/72
[2019-09-22] VITALS: BP 139/70
[2019-09-22] MEDS: LORAZEPAM 2MG/ML CPJ IV PRN (03:24)
[2019-09-22 04:00] VITALS: BP 168/84
[2019-09-22] MEDS: CLONIDINE 0.1MG TABLET PO PRN (05:19)
[2019-09-22] MEDS: BLOOD SUGAR DIAGNOSTIC STRIP TEST SCH ×3 (05:31→17:41)
[2019-09-22] MEDS: INSULIN LISPRO 100 UNITS/ML SUBCUT SCH ×3 (05:34→17:45)
[2019-09-22 08:00] VITALS: BP 164/95
[2019-09-22] MEDS: METOCLOPRAMIDE 10MG/10 ML UDC GT SCH ×3 (08:48→17:41)
[2019-09-22] MEDS: ENOXAPARIN 30MG/0.3ML SYR SUBCUT SCH ×2 (08:49→21:21)
[2019-09-22] MEDS: METOPROLOL TARTRATE 25MG TABLET PO SCH ×2 (08:49→21:22)
[2019-09-22] MEDS: RISPERIDONE 1MG TABLET PO SCH (08:49)
[2019-09-22 12:00] VITALS: BP 164/95
[2019-09-22] MEDS ORDERED: CLONIDINE 0.1MG TABLET PO PRN (14:15)
[2019-09-22 16:00] VITALS: BP 132/85
[2019-09-22 20:00] VITALS: BP 165/93
[2019-09-23] VITALS: BP 131/92
[2019-09-23] MEDS: BLOOD SUGAR DIAGNOSTIC STRIP TEST SCH ×4 (00:14→17:58)
[2019-09-23 04:00] VITALS: BP 174/96
[2019-09-23] MEDS: LORAZEPAM 2MG/ML CPJ IV PRN (05:00)
[2019-09-23] MEDS: INSULIN LISPRO 100 UNITS/ML SUBCUT SCH ×4 (05:44→18:16)
[2019-09-23] MEDS: CLONIDINE 0.1MG TABLET PO PRN ×2 (05:44→12:50)
[2019-09-23 08:08] VITALS: BP 150/77
[2019-09-23] MEDS: METOCLOPRAMIDE 10MG/10 ML UDC GT SCH ×3 (08:48→17:58)
[2019-09-23] MEDS: ENOXAPARIN 30MG/0.3ML SYR SUBCUT SCH ×2 (08:48→21:31)
[2019-09-23] MEDS: RISPERIDONE 1MG TABLET PO SCH (08:49)
[2019-09-23] MEDS: METOPROLOL TARTRATE 25MG TABLET PO SCH ×2 (08:49→21:31)
[2019-09-23] MEDS ORDERED: AMLODIPINE 5MG TABLET PO NR (11:45)
[2019-09-23 12:00] VITALS: BP 165/94
[2019-09-23 16:00] VITALS: BP 128/72
[2019-09-23 20:00] VITALS: BP 175/93
[2019-09-23] MEDS: AMLODIPINE 5MG TABLET PO SCH (21:31)
[2019-09-24] VITALS: BP 155/90
[2019-09-24] MEDS: BLOOD SUGAR DIAGNOSTIC STRIP TEST SCH ×4 (00:29→17:50)
[2019-09-24 04:00] VITALS: BP 102/61
[2019-09-24] MEDS: INSULIN LISPRO 100 UNITS/ML SUBCUT SCH ×4 (05:49→17:50)
[2019-09-24 08:00] VITALS: BP 128/87
[2019-09-24] MEDS: ENOXAPARIN 30MG/0.3ML SYR SUBCUT SCH ×2 (08:26→20:48)
[2019-09-24] MEDS: RISPERIDONE 1MG TABLET PO SCH (08:27)
[2019-09-24] MEDS: METOCLOPRAMIDE 10MG/10 ML UDC GT SCH ×3 (08:28→17:49)
[2019-09-24] MEDS: METOPROLOL TARTRATE 25MG TABLET PO SCH ×2 (08:28→20:47)
[2019-09-24] MEDS: AMLODIPINE 5MG TABLET PO SCH ×2 (08:29→20:47)
[2019-09-24 12:00] VITALS: BP 130/69
[2019-09-24 16:00] VITALS: BP_SYST 142; BP_SYST 154; BP_DIAS 86; BP_DIAS 93
[2019-09-24 20:00] VITALS: BP 141/79
[2019-09-24] MEDS: LORAZEPAM 2MG/ML CPJ IV PRN (21:11)
[2019-09-25] VITALS: BP 147/99
[2019-09-25] MEDS: BLOOD SUGAR DIAGNOSTIC STRIP TEST SCH ×2 (00:41→05:50)
[2019-09-25] MEDS ORDERED: LORAZEPAM 0.5MG TABLET PO PRN (00:45)
[2019-09-25] MEDS: INSULIN LISPRO 100 UNITS/ML SUBCUT SCH ×2 (00:58→05:50)
[2019-09-25 04:00] VITALS: BP 155/84
[2019-09-25 08:00] VITALS: BP 160/79
[2019-09-25] MEDS: ENOXAPARIN 30MG/0.3ML SYR SUBCUT SCH (08:56)
[2019-09-25] MEDS: METOCLOPRAMIDE 10MG/10 ML UDC GT SCH (08:57)
[2019-09-25] MEDS: RISPERIDONE 1MG TABLET PO SCH (08:58)
[2019-09-25] MEDS: METOPROLOL TARTRATE 25MG TABLET PO SCH (08:58)
[2019-09-25] MEDS: AMLODIPINE 5MG TABLET PO SCH (08:59)
== END 2019-09-25 10:40 | DRG 64 ==
LOC: ER 00:07 → EDBD 02:18 → 5EST 02:18 → ENRESERV 02:49 → 6EST 09-12 14:05
PROVIDERS: ADMIT Internal Medicine; ATTEND Internal Medicine
PROC: 0DB68ZX Excision of Stomach, Via Natural or Artificial Opening Endoscopic, Diagnostic (ICD-10-PCS; principal; 2019-08-11)
PROC: 0DH68UZ Insertion of Feeding Device into Stomach, Via Natural or Artificial Opening Endoscopic (ICD-10-PCS; 2019-08-11)
PROC: 02HV33Z Insertion of Infusion Device into Superior Vena Cava, Percutaneous Approach (ICD-10-PCS; 2019-08-11)
PROC: B548ZZA Ultrasonography of Superior Vena Cava, Guidance (ICD-10-PCS; 2019-08-11)
DX: I63.232 Cerebral infarction due to unspecified occlusion or stenosis of left carotid arteries (principal); I21.4 Non-ST elevation (NSTEMI) myocardial infarction; I63.512 Cerebral infarction due to unspecified occlusion or stenosis of left middle cerebral artery; E43 Unspecified severe protein-calorie malnutrition; I16.1 Hypertensive emergency; G93.40 Encephalopathy, unspecified; I50.30 Unspecified diastolic (congestive) heart failure; E66.9 Obesity, unspecified; E11.65 Type 2 diabetes mellitus with hyperglycemia; E78.5 Hyperlipidemia, unspecified; I11.0 Hypertensive heart disease with heart failure; K26.9 Duodenal ulcer, unspecified as acute or chronic, without hemorrhage or perforation; D72.829 Elevated white blood cell count, unspecified; F32.9 Major depressive disorder, single episode, unspecified; I48.91 Unspecified atrial fibrillation; K29.70 Gastritis, unspecified, without bleeding; K29.80 Duodenitis without bleeding; R13.10 Dysphagia, unspecified; Z71.3 Dietary counseling and surveillance; Z79.899 Other long term (current) drug therapy; Z20.828 Contact with and (suspected) exposure to other viral communicable diseases; Z68.36 Body mass index [BMI] 36.0-36.9, adult
CPT/HCPCS: 36415; 36600; 70544; 70551; 70553; 71045; 76937; 80048; 80053; 80061; 80305; 80307; 80320; 80329; 81003; 82040; 82140; 82375; 82805; 82962; 83036; 83605; 83880; 84134; 84145; 84443; 84484; 85025; 85027; 87015; 87045; 87427; 87449; 87635; 88305; 88312; 88313; 92523; 92610; 93005; 93306; 93880; 93971; 95816; 96374; 97110; 97162; 97164; 97166; 97168; 97530; 97535; 99291; C1725; C9113; J0282; J0360; J0690; J0696; J1100; J1650; J1815; J1940; J2060; J2250; J2405; J2765; J3010; J3480; J3490; J7030; J7060; J8597; G0480; U0003-CS